=== PATIENT | male | born 1970 | race Caucasian/White ===

== ENCOUNTER 2016-06-19 17:43 | Inpatient (IN) | payer OTHER ==
[2016-06-19] VITALS (13 sets, daily range): BP systolic 98–130; BP diastolic 52–81; PULSE 73–83; RESP 14–16; TEMP 97.6–98.2; O2SAT 91–100
[~2016-06-19] VITALS: Ht 182.9 cm; Wt 118.3 kg
[~2016-06-19 17:43] MED LIST: ABIL5TAB6 PO; BACT800T5 PO; CLON.5 PO; LEXA20TA PO; LYRI150C PO; TOPI50TA4 PO; WELL150T PO
[2016-06-19] MEDS ORDERED: SODIUM CHLOR 0.9% 1000 ML INJ 1,000 ML IV ONE ×2 (17:52→19:15)
[2016-06-19] MEDS ORDERED: SODIUM CHLOR 0.9% 1000 ML INJ 800 ML IV ONE (17:52)
--- NOTE | 2016-06-19 17:59 | PD ---
HPI Chief Complaint: Respiratory Distress Time Seen by Provider: 17:52 Travel History International Travel<30 days: No Contact w/Intl Traveler<30days: No Traveled to known affect area: No History of Present Illness HPI 46-year-old male brought in by ambulance from his hotel where he lives after being found facedown in altered by his roommates. His roommates heard him in his room this morning at around 5:00 AM when they went to school. They last seen him normal yesterday evening. EMS reports possible history of drug use. They found him lying face down and unresponsive with a GCS of 3. They gave him Narcan without improvement in mental status. They believe that he may been having some seizure-like activity, and administered Ativan with apparently cessation of this activity. They attempted to intubate him, however was unsuccessful, so a Combitube was placed. Upon arrival to the emergency department the patient's breathing is controlled by BVM through a Combitube. He is obtunded. Completely unresponsive to painful or verbal stimuli. He is clearly unable to provide any history. The patient was placed in a Caro collar and the Combitube was promptly switched to an endotracheal tube by me. [facility] Past Medical History Respiratory: Yes (BILAT PE) Social History Alcohol Use: No Tobacco Use: No Allergies-Medications (Allergen,Severity, Reaction): Coded Allergies: Dapsone (Verified Allergy, Severe, 01/14/16) Reported Meds & Prescriptions Reported Meds & Active Scripts Active Active Prescriptions or Reported Medications Unobtainable Review of Systems ROS Limitations: Clinical Condition, Intubated, Altered Mental Status Physical Exam Narrative GENERAL: Well-developed, well-nourished, obtunded SKIN: Warm and dry. Left periorbital ecchymosis. No other lacerations, abrasions, or ecchymosis. HEAD: Atraumatic. Normocephalic. EYES: Pupils equal, round, 6 mm, reactive to light. Left periorbital ecchymosis. No scleral icterus. No injection or drainage. ENT: No nasal bleeding or discharge. Mucous membranes pink and moist. NECK: Trachea midline. No JVD. CARDIOVASCULAR: Regular rate and rhythm. RESPIRATORY: No spontaneous respirations. Combitube in place. BVM. GASTROINTESTINAL: Abdomen soft, nondistended. MUSCULOSKELETAL: Right BKA. All extremity compartments are supple. NEUROLOGICAL: Obtunded. No spontaneous movements. No response to verbal or painful stimuli. Data Data Last Documented VS Vital Signs Date Time Temp Pulse Resp B/P Pulse Ox O2 Delivery O2 Flow Rate FiO2 06/19/16 18:51 100 06/19/16 18:48 83 14 128/80 97 Ventilator 06/19/16 17:49 97.6 Orders Electrocardiogram (06/19/16 17:52) Complete Blood Count With Diff (06/19/16:52) Comprehensive Metabolic Panel (06/19/16:52) Prothrombin Time / Inr (Pt) (06/19/16:52) Act Partial Throm Time (Ptt) (06/19/16:52) Lactic Acid Sepsis Protocol (06/19/16:52) Lipase (06/19/16:52) Ckmb (Isoenzyme) Profile (06/19/16:52) Troponin I (06/19/16:52) Urinalysis - C+S If Indicated (06/19/16:52) Blood Culture (06/19/16:52) Chest, Single Ap (06/19/16:52) Blood Glucose (06/19/16:52) Ecg Monitoring (06/19/16:52) Iv Access Insert/Monitor (06/19/16:52) Oximetry (06/19/16:52) Oxygen Administration (06/19/16:52) Sodium Chlor 0.9% 1000 Ml Inj (Ns 1000 M (06/19/16 17:52) Sodium Chlor 0.9% 1000 Ml Inj (Ns 1000 M (06/19/16 17:52) Drug Screen, Random Urine (06/19/16 17:52) Urinary Catheter Insert/Apply (06/19/16:52) Restraints Non-Violent ARLINE.Q3H (06/19/16 17:52) Ct Brain W/O Iv Contrast(Rout) (06/19/16 ) Ct Cerv Spine W/O Contrast (06/19/16 ) Ammonia (06/19/16 17:59) Salicylates (Aspirin) (06/19/16 17:59) Tylenol (Acetaminophen) (06/19/16 17:52) Alcohol (Ethanol) (06/19/16 17:52) Thyroid Stimulating Hormone (06/19/16 17:52) Propofol 1000 Mg/100 Ml Inj (Diprivan 10 (06/19/16 18:18) Vancomycin Inj (Vancomycin Inj) (06/19/16 18:30) Piperacil-Tazo 3.375 Gm Premix (Zosyn 3. (06/19/16 18:30) Urine Culture (06/19/16 18:05) CKMB (06/19/16 18:05) CKMB% (06/19/16 18:05) Arterial Blood Gas (Abg) (06/19/16 ) Arterial Blood Gas (Abg) (06/19/16 18:52) Sodium Chlor 0.9% 1000 Ml Inj (Ns 1000 M (06/19/16 19:15) Etomidate Inj (Amidate Inj) (06/19/16 19:15) Rocuronium Inj (Zemuron Inj) (06/19/16 19:15) Labs Laboratory Tests Test 06/19/16 06/19/16 06/19/16 18:05 18:08 18:52 Urine Color DARK-BROWN Urine Turbidity CLOUDY Urine pH 6.0 Urine Specific [place] 1.025 Urine Protein 100 mg/dL Urine Glucose (UA) NEG mg/dL Urine Ketones NEG mg/dL Urine Occult Blood LARGE Urine Nitrite NEG Urine Bilirubin NEG Urine Urobilinogen 2.0 MG/DL Urine Leukocyte Esterase NEG Urine RBC 22 /hpf Urine WBC 6 /hpf Urine Amorphous Sediment FEW Urine Bacteria FEW /hpf Urine Mucus FEW /lpf Microscopic Urinalysis Comment CATH-CULTURE IND Sodium Level 140 MEQ/L Potassium Level 4.0 MEQ/L Chloride Level 107 MEQ/L Carbon Dioxide Level 25.3 MEQ/L Anion Gap 8 MEQ/L Blood Urea Nitrogen 24 MG/DL Creatinine 1.75 MG/DL Estimat Glomerular Filtration 43 ML/MIN Rate Random Glucose 112 MG/DL Calcium Level 8.3 MG/DL Total Bilirubin 1.9 MG/DL Aspartate Amino Transf 91 U/L (AST/SGOT) Alanine Aminotransferase 63 U/L (ALT/SGPT) Alkaline Phosphatase 105 U/L Ammonia 52 MCMOL/L Total Creatine Kinase 2724 U/L Creatine Kinase MB 17.4 NG/ML Creatine Kinase MB % 0.6 % Troponin I LESS THAN 0.02 NG/ML Total Protein 7.9 GM/DL Albumin 3.9 GM/DL Lipase 237 U/L Thyroid Stimulating Hormone 0.366 uIU/ML 3rd Gen Salicylates Level LESS THAN 1.7 MG/DL Acetaminophen Level LESS THAN 2.0 MCG/ML Ethyl Alcohol Level LESS THAN 3 MG/DL White Blood Count 14.7 TH/MM3 Red Blood Count 4.35 MIL/MM3 Hemoglobin 14.4 GM/DL Hematocrit 44.8 % Mean Corpuscular Volume 103.0 FL Mean Corpuscular Hemoglobin 33.1 PG Mean Corpuscular Hemoglobin 32.2 % Concent Red Cell Distribution Width 17.0 % Platelet Count 268 TH/MM3 Mean Platelet Volume 9.9 FL Neutrophils (%) (Auto) 88.2 % Lymphocytes (%) (Auto) 4.3 % Monocytes (%) (Auto) 7.1 % Eosinophils (%) (Auto) 0.0 % Basophils (%) (Auto) 0.4 % Neutrophils # (Auto) 13.0 TH/MM3 Lymphocytes # (Auto) 0.6 TH/MM3 Monocytes # (Auto) 1.0 TH/MM3 Eosinophils # (Auto) 0.0 TH/MM3 Basophils # (Auto) 0.1 TH/MM3 CBC Comment DIFF FINAL Differential Comment Prothrombin Time 12.0 SEC Prothromb Time International 1.1 RATIO Ratio Activated Partial 26.9 SEC Thromboplast Time Lactic Acid Level 1.8 mmol/L Blood Gas Puncture Site RT BRACHIAL Blood Gas Patient Temperature 98.6 Blood Gas HCO3 21 mmol/L Blood Gas Base Excess -4.9 mmol/L Blood Gas Oxygen Saturation 94 % Arterial Blood pH 7.29 Arterial Blood Partial 45 mmHg Pressure CO2 Arterial Blood Partial 390 mmHG Pressure O2 Arterial Blood Oxygen Content 20.2 Vol % Arterial Blood 0.4 % Carboxyhemoglobin Arterial Blood Methemoglobin 5.2 % Blood Gas Hemoglobin 14.6 G/DL Oxygen Delivery Device VENTILATOR Blood Gas Ventilator Setting Blood Gas Inspired Oxygen 100 % [facility] Medical Decision Making Medical Screen Exam Complete: Yes Emergency Medical Condition: Yes Interpretation(s) EKG: Sinus, rate 82, normal axis, first-degree AV block, possible left atrial enlargement, intraventricular conduction delay, no acute ischemic abnormality. Differential Diagnosis Intracranial abnormality, metabolic abnormality, cervical spine injury, acute respiratory failure, status epilepticus Narrative Course Vital signs show heart rate 82, blood pressure 127/78, pulse ox 97% on 100% FiO2 , axillary temp of 97.6F. CBC shows WBC 14.7, hemoglobin 14.4, hematocrit 44.8, MCV 103, platelets 268, neutrophils 88%. CMP is remarkable for BUN 24, creatinine 1.75, GFR 43, T bili 1.9, AST 91, otherwise unremarkable. Lactic acid is 1.8. Ammonia is 52. Troponin is negative. TSH is 0.366. Total CK is 2724. Tylenol, alcohol, and salicylate levels are negative. ABG on 100% FiO2 shows pH of 7.29, PCO2 45, PO2 390, met hemoglobin 5.2% CT head: Normal exam. CT cervical spine: No acute bony fracture. Mild primary degenerative changes at C5 to 6. Chest x-ray: ET tube and NG tube appeared to be in good position. No pneumothorax. The patient was empirically started on vancomycin and Zosyn for possible infectious source for his altered mental status/encephalopathy. He was given 3 L of normal saline IV for his rhabdomyolysis with his CK of 2700. 7:00 PM: I called the patient's who flew to [place] yesterday. She is a nurse. Her name is Alena Hall, and her phone number is . She tells me that the patient is prescribed Lexapro, Wellbutrin, Topamax, Lyrica , Klonopin, and is also on dapsone for skin rash associated with celiac disease. She tells me that he has a history of anxiety and depression. 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 She states that this has placed a lot of stress on him. She tells me that he also occasionally uses recreational medications, but she is unsure exactly what he uses. She was made aware of the patient's current critical clinical status. Case discussed with hospice admitting clerk Dr. Knight who will admit the patient to her service. She will determine if any treatment as necessary for the patient's mild methemoglobinemia. Critical Care Narrative Aggregate critical care time was 40 minutes. Time to perform other separately billable procedures was not included in the critical care time. My time did not include minutes spent treating any other patients simultaneously or on activities that did not directly contribute to the patient's treatment. The services I provided to this patient were to treat and/or prevent clinically significant deterioration that could result in: , permanent disability, worsening clinical condition I provided critical care services requiring my management, as noted below: Chart data review, documentation time, medication orders and management, vital sign assessments/reviewing monitor data, ordering and reviewing lab tests, ordering and interpreting/reviewing x-rays and diagnostic studies, care of the patient and discussion of the patient with the admitting physicians. Procedures Procedure Narrative Emergent intubation: The patient was put in optimal position for the procedure. Rapid sequence intubation was initiated by me using 20 milligrams of etomidate IV and 50 milligrams of rocuronium IV. Combitube removed and the patient was intubated with a 8.0 Portuguese cuffed endotracheal tube. Tube placement was confirmed by visualization of the tube and balloon passing through the cords, capnometry and subsequent chest x-ray. Breath sounds were equal and well aerated bilaterally postintubation. No breath sounds over stomach. Patient tolerated procedure well. Diagnosis Primary Impression: Altered mental status Qualified Code: R40.2430 - Christi coma scale total score 3-8, unspecified time Additional Impressions: Acute respiratory failure Qualified Code: J96.01 - Acute respiratory failure with hypoxia Rhabdomyolysis Qualified Code: M62.82 - Non-traumatic rhabdomyolysis Renal insufficiency Methemoglobinemia Admitting Information Admitting Physician Requests: Admit Scripts Unable to Obtain Active Prescriptions or Reported Meds Delbert Montes MD Jun 19, 2016 17:59
[2016-06-19] MEDS ORDERED: PROPOFOL 1000 MG/100 ML INJ 100 ML ONE (18:18)
--- NOTE | 2016-06-19 18:21 | RADRPT ---
EXAM DATE/TIME: 06/19/2016 18:02 [facility] COMPARISON: No previous studies available for comparison. INDICATIONS : Evaluate intubation MEDICAL HISTORY : None. SURGICAL HISTORY : None. ENCOUNTER: Initial ACUITY: 1 day PAIN SCORE: Non-responsive. LOCATION: chest FINDINGS: A single view of the chest demonstrates the lungs to be symmetrically aerated without evidence of mas s, infiltrate or effusion. The ET tube appears to be in good position with the tip at the level of t he thoracic aortic arch. There is no evidence of pneumothorax. There is an NG tube in the stomach. Th e cardiomediastinal contours are unremarkable. Osseous structures are intact. CONCLUSION: 1. The ET tube and NG tube appear to be in good position. 2. No pneumothorax. Gray Nair MD on June 19, 2016 at 18:18 Board Certified Radiologist. This report was verified electronically.
[2016-06-19 18:22] LABS: BASOPHIL # 0.1 TH/MM3 (0-0.2); BASOPHIL % 0.4 % (0.0-2.0); HEMATOCRIT 44.8 % (39.0-51.0); HEMO FLAGS DIFF FINAL; LYMPH % 4.3 % (9.0-44.0); LYMPHOCYTE # 0.6 TH/MM3 (1.0-4.8); MEAN CORPUSCULAR HEMOGLOBIN 33.1 PG (27.0-34.0); MEAN CORPUSCULAR HGB CONC 32.2 % (32.0-36.0); MONO % 7.1 % (0.0-8.0); NEUT % 88.2 % (16.0-70.0); PLATELET COUNT 268 TH/MM3 (150-450); RED BLOOD COUNT 4.35 MIL/MM3 (4.50-5.90); WHITE BLOOD COUNT 14.7 TH/MM3 (4.0-11.0)
[2016-06-19] MEDS ORDERED: PIPERACIL-TAZO 3.375 GM PREMIX 50 ML IV ONE (18:30)
[2016-06-19] MEDS ORDERED: VANCOMYCIN INJ 1,000 MG in SODIUM CHLOR 0.9% 250 ML INJ 250 ML IV ONE (18:30)
[2016-06-19 18:32] LABS: APTT (PATIENT) 26.9 SEC (24.3-30.1); INTERNATIONAL NORMALIZED RATIO 1.1 RATIO
[2016-06-19 18:36] LABS: ANION GAP 8 MEQ/L (5-15); AST (GOT) 91 U/L (15-37); BICARBONATE 25.3 MEQ/L (21.0-32.0); BLOOD UREA NITROGEN 24 MG/DL (7-18); CHLORIDE 107 MEQ/L (98-107); GLOMERULAR FILTRATION RATE 43 ML/MIN (>89); SODIUM (NA) 140 MEQ/L (136-145)
[2016-06-19 18:42] LABS: BACTERIA, URINE FEW /hpf; BLOOD, URINE LARGE (NEG); COMMENT (UR) CATH-CULTURE IND; CULTURE IF INDICATED CATH CULTURE IND; GLUCOSE,URINE NEG (NEG); KETONE, URINE NEG (NEG); MUCUS URINE FEW /lpf (OCC); NITRITE,URINE NEG (NEG); URINE COLOR DARK-BROWN (YELLW/STRAW)
--- NOTE | 2016-06-19 18:49 | RADRPT ---
EXAM DATE/TIME: 06/19/2016 18:26 [facility] COMPARISON: No previous studies available for comparison. INDICATIONS : Altered mental status, possible fall today. RADIATION DOSE: 56.35 CTDIvol (mGy) MEDICAL HISTORY : None SURGICAL HISTORY : None. ENCOUNTER: Initial ACUITY: 1 day PAIN SCALE: Non-responsive LOCATION: Bilateral head TECHNIQUE: Multiple contiguous axial images were obtained of the head. Using automated exposure control and adj ustment of the mA and/or kV according to patient size, radiation dose was kept as low as reasonably a chievable to obtain optimal diagnostic quality images. FINDINGS: CEREBRUM: The ventricles are normal for age. No evidence of midline shift, mass lesion, hemorrhage or acute in farction. No extra-axial fluid collections are seen. POSTERIOR FOSSA: The cerebellum and brainstem are intact. The 4th ventricle is midline. The cerebellopontine angle i s unremarkable. EXTRACRANIAL: The visualized portion of the orbits is intact. SKULL: The calvaria is intact. No evidence of skull fracture. CONCLUSION: Normal examination for a patient of this age. Gray Nair MD on June 19, 2016 at 18:47 Board Certified Radiologist. This report was verified electronically.
--- NOTE | 2016-06-19 18:53 | RADRPT ---
EXAM DATE/TIME: 06/19/2016 18:27 [facility] COMPARISON: No previous studies available for comparison. INDICATIONS : Trauma, possible fall today. RADIATION DOSE: 36.67 CTDIvol (mGy) MEDICAL HISTORY : None SURGICAL HISTORY : None. ENCOUNTER: Initial ACUITY: 1 day PAIN SCALE: Non-responsive LOCATION: neck TECHNIQUE: Volumetric scanning of the cervical spine was performed. Multiplanar reconstructions in the sagittal, coronal and oblique axial planes were performed. Using automated exposure control and adjustment o f the mA and/or kV according to patient size, radiation dose was kept as low as reasonably achievable to obtain optimal diagnostic quality images. FINDINGS: VERTEBRAE: Normal vertebral body height. No acute bony fracture. There is some mild degenerative changes at C5-6 . ALIGNMENT: No evidence of subluxation. C2-C3: The bony spinal canal is normal in size. No evidence of disc bulge or herniation. The neural forami na are bilaterally patent. C3-C4: The bony spinal canal is normal in size. No evidence of disc bulge or herniation. The neural forami na are bilaterally patent. C4-C5: The bony spinal canal is normal in size. No evidence of disc bulge or herniation. The neural forami na are bilaterally patent. C5-C6: The bony spinal canal is normal in size. No evidence of disc bulge or herniation. The neural forami na are bilaterally patent. C6-C7: The bony spinal canal is normal in size. No evidence of disc bulge or herniation. The neural forami na are bilaterally patent. C7-T1: The bony spinal canal is normal in size. No evidence of disc bulge or herniation. The neural forami na are bilaterally patent. CONCLUSION: 1. No acute bony fracture. 2. Mild primary degenerative changes at C5-6. Gray Nair MD on June 19, 2016 at 18:50 Board Certified Radiologist. This report was verified electronically.
[2016-06-19 18:58] LABS: ACETAMINOPHEN LESS THAN 2.0 MCG/ML (10.0-30.0); ALKALINE PHOSPHATASE 105 U/L (45-117); ALT (GPT) 63 U/L (12-78); CREATINE KINASE 2724 U/L (39-308); TOTAL BILIRUBIN ADULT 1.9 MG/DL (0.2-1.0)
[2016-06-19 19:04] LABS: BLOOD GAS BASE EXCESS -4.9 mmol/L (-2-2); BLOOD GAS CARBOXYHEMOGLOBIN 0.4 % (0-4); BLOOD GAS HCO3 21 mmol/L (22-26); BLOOD GAS METHEMOGLOBIN 5.2 % (0-2); BLOOD GAS O2 HGB SATURATION 94 % (90-100); BLOOD GAS OXYGEN CONTENT 20.2 Vol % (12.0-20.0); BLOOD GAS PCO2 45 mmHg (38-42); BLOOD GAS PO2 390 mmHG (61-120); BLOOD GAS TOTAL HGB 14.6 G/DL (12.0-16.0); TEMP CORR TO 98.6
[2016-06-19 19:05] LABS: CRITICAL VALUE YES; OXYGEN DEVICE VENTILATOR
[2016-06-19 19:06] LABS: DRAW SITE RT BRACHIAL; FIO2 100 %; NUMBER OF ARTERIAL PUNCTURES 1; STAT YES; ULNAR PULSE PRESENT
[2016-06-19 19:14] LABS: CKMB 17.4 NG/ML (0.5-3.6)
[2016-06-19] MEDS ORDERED: ROCURONIUM INJ 50 MG/5 ML VIAL IV ONE (19:15)
[2016-06-19] MEDS ORDERED: ETOMIDATE 20 MG/10 ML VIAL IV PUSH ONE (19:15)
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
[2016-06-19] MEDS ORDERED: LACTULOSE SYRUP 20 GM/30 ML CUP TUBE ONE (20:15)
[2016-06-19] MEDS ORDERED: CHLORHEXIDINE GLUCONATE 2 % 1 PACK (2 CLOTHS) TOP PRN (20:15)
[2016-06-19] MEDS ORDERED: ONDANSETRON HCL 4 MG/2 ML VIAL IV PRN (20:15)
[2016-06-19] MEDS ORDERED: MISCELLANEOUS NURSING INFORMATION XX SCH (20:15)
[2016-06-19] MEDS ORDERED: RESP: ALBUTEROL 2.5 MG/3 ML NEB (PRN) INH (20:15)
[2016-06-19] MEDS: SODIUM CHLOR 0.9% 1000 ML INJ 1,000 ML IV SCH (20:28)
[2016-06-19] MEDS ORDERED: FOSPHENYTOIN INJ 1,500 MGPE in SODIUM CHLORIDE 0.9% INJ 100 ML IV ONE (21:00)
[2016-06-19] MEDS ORDERED: cefTRIAXone INJ 2,000 MG in SODIUM CHLORIDE 0.9% INJ 100 ML IV SCH (21:00)
[2016-06-19] MEDS ORDERED: CLON1 PO (21:12)
[2016-06-19] MEDS ORDERED: TOPA50TA7 PO (21:12)
[2016-06-19] MEDS ORDERED: PREG25 PO (21:12)
[2016-06-19] MEDS ORDERED: BUPR100CR PO (21:12)
[2016-06-19] MEDS ORDERED: LEXA20TA PO (21:12)
[2016-06-19] MEDS ORDERED: ACZO5GEL2 TOPICAL (21:12)
[2016-06-19] MEDS: RESP: ALBUTEROL 2.5 MG/IPRATROPIUM 0.5 MG NEB (SCH) INH (22:31)
[2016-06-19 22:55] LABS: AMPHETAMINE, URINE POS (NEG); BARBITURATES, URINE NEG (NEG); COCAINE, URINE POS (NEG)
[2016-06-19] MEDS ORDERED: NOREPINEPHRINE-DEXTROSE DRIP 250 ML IV ONE (22:56)
[2016-06-20] VITALS (21 sets, daily range): BP systolic 87–126; BP diastolic 41–66; PULSE 70–104; RESP 8–28; TEMP 98.1–103; O2SAT 85–98
--- NOTE | 2016-06-20 00:21 | PD.PROCEDR ---
Procedure Note Procedure DATE: 06/19/16 CENTRAL LINE PLACEMENT: Right IJ vein. Ultrasound-guided INDICATION: Central venous access CONSENT Patient is not capacitated for medical decision-making. Procedure was done emergently as he was in extremis with blood pressure 60/40 in need of central venous access. DESCRIPTION OF THE PROCEDURE The patient was placed in supine position, Trendelenburg. The skin was cleansed with Chloraprep. Additional barrier precautions included large sterile drape, sterile gloves, sterile gown, face mask, and hat. 1 % lidocaine was used for local anesthesia. Initial attempt x3 at R subclavian site unsuccessful. Under direct ultrasound guidance and on single attempt, the right IJ vein was accessed with an introducer needle. The guide wire was advanced and the tract was dilated. Using Seldinger technique a 7 Syriac 20 cm antimicrobial coated triple-lumen catheter was advanced to a depth of 17 centimeters. The guide wire was removed. All ports had good return of dark venous blood and flushed easily with saline. The central line was secured with 2.0 silk. A sterile dressing with antibiotic disc was applied. ESTIMATED BLOOD LOSS: Minimal COMPLICATIONS: No apparent complications. STAT chest x-ray is pending Ling Knight MD Jun 20, 2016 00:21
[2016-06-20] MEDS ORDERED: ROCURONIUM INJ 50 MG/5 ML VIAL IV ONE (00:45)
[2016-06-20] MEDS ORDERED: fentaNYL DRIP 250 ML IV SCH (00:45)
[2016-06-20] MEDS ORDERED: TERBUTALINE INJ 1 MG/ML AMP SQ PRN ×3 (00:45→08:15)
--- NOTE | 2016-06-20 00:46 | RADRPT ---
EXAM DATE/TIME: 06/20/2016 00:27 [facility] COMPARISON: CHEST SINGLE AP, June 19, 2016, 18:02. INDICATIONS : Post central line placement. MEDICAL HISTORY : None. SURGICAL HISTORY : None. ENCOUNTER: Subsequent ACUITY: 1 day PAIN SCORE: Non-responsive. LOCATION: Bilateral chest FINDINGS: There is increasing bilateral airspace disease in the left mid to lower lung zone, right upper lobe a nd right lower lobe. Right jugular line tip overlies the expected location of the SVC/right atrial ju nction. Endotracheal tube tip at the inferior margin of the clavicles. Enteric tube is present and th e distal tip overlies the mid thoracic esophagus, side port at the thoracic inlet. Osseous structures are intact. CONCLUSION: Central line placement as above. Enteric tube should be advanced. Bilateral airspace disease. Waldemar Becerril MD on June 20, 2016 at 0:44 Board Certified Radiologist. This report was verified electronically.
[2016-06-20] MEDS: NOREPINEPHRINE-DEXTROSE DRIP 250 ML IV SCH ×2 (01:10→02:39)
[2016-06-20 01:33] LABS: CKMB 14.5 NG/ML (0.5-3.6)
[2016-06-20] MEDS: PROPOFOL 1000 MG/100 ML INJ 100 ML IV SCH ×2 (02:39→13:54)
[2016-06-20 02:42] LABS: LACTIC ACID GHOST NOT REPORTABLE
[2016-06-20] MEDS ORDERED: SODIUM CHLORID 0.9% 500 ML INJ 500 ML IV ONE (03:15)
[2016-06-20] MEDS: RESP: ALBUTEROL 2.5 MG/IPRATROPIUM 0.5 MG NEB (SCH) INH ×4 (03:17→19:26)
[2016-06-20] MEDS: VASOPRESSIN INJ 40 UNITS in DEXTROSE 5% IN WATER 100ML INJ 98 ML IV SCH ×4 (03:46→18:36)
[2016-06-20] MEDS: HYDROCORTISONE SOD SUCCINATE 100 MG VIAL IV PUSH SCH ×4 (03:48→21:48)
[2016-06-20] MEDS: SODIUM CHLOR 0.9% 1000 ML INJ 1,000 ML IV SCH (03:51)
[2016-06-20 03:59] LABS: APTT (PATIENT) 21.7 SEC (24.3-30.1); INTERNATIONAL NORMALIZED RATIO 1.1 RATIO; PROTHROMBIN TIME - PATIENT 12.3 SEC (9.8-11.6)
[2016-06-20] MEDS ORDERED: CHLORHEXIDINE GLUCONATE 2 % 1 PACK (2 CLOTHS) TOP SCH (04:00)
[2016-06-20 04:14] LABS: AUTOMATED NEUTROPHIL # 4.7 TH/MM3 (1.8-7.7); BASOPHIL % 0.1 % (0.0-2.0); EOSINOPHIL % 0.6 % (0.0-4.0); HEMATOCRIT 45.3 % (39.0-51.0); LYMPH % 8.3 % (9.0-44.0); LYMPHOCYTE # 0.4 TH/MM3 (1.0-4.8); MEAN CELL VOLUME 105.3 FL (80.0-100.0); MEAN CORPUSCULAR HEMOGLOBIN 34.6 PG (27.0-34.0); MEAN CORPUSCULAR HGB CONC 32.9 % (32.0-36.0); MONO % 2.9 % (0.0-8.0); NEUT % 88.1 % (16.0-70.0); PLATELET COUNT 252 TH/MM3 (150-450); RED CELL DISTRIBUTION WIDTH 17.1 % (11.6-17.2); WHITE BLOOD COUNT 5.3 TH/MM3 (4.0-11.0)
[2016-06-20 04:19] LABS: BICARBONATE 19.8 MEQ/L (21.0-32.0); CALCIUM-PROTEIN CORRECTED 7.5 MG/DL (8.5-10.1); MAGNESIUM 1.6 MG/DL (1.5-2.5); POTASSIUM 3.3 MEQ/L (3.5-5.1); TOTAL BILIRUBIN ADULT 1.3 MG/DL (0.2-1.0)
[2016-06-20 04:21] LABS: HEMO FLAGS AUTO DIFF
[2016-06-20] MEDS: PIPERACIL-TAZO 3.375 GM PREMIX 50 ML IV SCH ×3 (04:38→16:12)
[2016-06-20 04:53] LABS: CKMB 11.6 NG/ML (0.5-3.6)
[2016-06-20] MEDS ORDERED: Vancomycin Consult Pharmacy 1 EA OTHER SCH (05:15)
[2016-06-20 05:39] LABS: PLATELET ESTIMATE SMEAR NORMAL (NORMAL); PLATELET MORPHOLOGY NORMAL (NORMAL); SCAN/DIFF AUTO DIFF CONFIRMED
[2016-06-20] MEDS ORDERED: POTASSIUM CHLOR 20 MEQ PREMIX 100 ML IV ONE (05:45)
[2016-06-20] MEDS ORDERED: NOREPINEPHRINE-DEXTROSE DRIP 250 ML IV SCH (05:45)
[2016-06-20] MEDS ORDERED: CALCIUM CHLORIDE INJ 1 GM in DEXTROSE 5% IN WATER 100ML INJ 100 ML IV ONE ×2 (06:00)
[2016-06-20] MEDS ORDERED: VANCOMYCIN 1,000 MG/NS 250 ML IV ONE ×2 (06:00)
[2016-06-20] MEDS: NOREPINEPHRINE 16 MG/D5W 250 ML IV SCH ×4 (06:00→16:13)
--- NOTE | 2016-06-20 06:06 | PD.PROCEDR ---
Procedure Note Procedure Date: 06/20/16 Procedure: Fiberoptic bronchoscopy with bronchoalveolar lavage, diagnostic/ therapeutic Indication: Acute respiratory failure with aspiration and severe hypoxemia Details of procedure: The patient was sedated with propofol 15 mcg/kg/min. The patient was preoxygenated with 100% FiO2 via endotracheal tube. I entered the endotracheal tube with a flexible bronchoscope. There was evidence of mild bronchial aspiration injury in R bronchus intermedius. The RUL was clear. When saline instilled in RML and RLL subsegments, there was murky cloudy return. The bronchoscope was advanced into RML bronchus and 40 mL was instilled with 25 mL of cloudy yellowish return. The ROSSANA, Lingula and LLL subsegments appeared grossly clear. Instilling 10 ML saline wash in LLL resulted in cloudy yellowish return. No large mucous plugs. Patient tolerated the procedure well without apparent complication. Ling Knight MD Jun 20, 2016 06:06 well without any apparent complications. A stat chest x-ray was ordered. Ling Knight MD Jun 20, 2016 06:06
[2016-06-20 06:13] LABS: BLOOD GAS VENOUS BASE EXCESS -13.4 mmol/L (-2-2); BLOOD GAS VENOUS HCO3 15 mmol/L (22-26); BLOOD GAS VENOUS O2 CONTENT 14.1 Vol % (9.0-17.0); BLOOD GAS VENOUS O2 HGB SAT 71 % (70-76); BLOOD GAS VENOUS PCO2 55 mmHg (44-48); BLOOD GAS VENOUS PO2 51 mmHg (35-40); BLOOD GAS VENOUS pH 7.06 (7.360-7.400); TEMP CORR TO 98.6
[2016-06-20 06:14] LABS: CRITICAL VALUE YES; DRAW SITE LINE; FIO2 100 %; OXYGEN DEVICE VENTILATOR; STAT YES; VENT SETTINGS AC/22/550/PEEP 16
[2016-06-20] MEDS ORDERED: MIDAZOLAM HCL 2 MG/2 ML VIAL IV PUSH ONE (06:15)
[2016-06-20] MEDS: MIDAZOLAM 100 MG/ML INJ 100 ML IV SCH ×2 (06:28→21:49)
[2016-06-20 06:56] LABS: BLOOD GAS BASE EXCESS -13.9 mmol/L (-2-2); BLOOD GAS CARBOXYHEMOGLOBIN 0.3 % (0-4); BLOOD GAS HCO3 14 mmol/L (22-26); BLOOD GAS METHEMOGLOBIN 3.8 % (0-2); BLOOD GAS O2 HGB SATURATION 94 % (90-100); BLOOD GAS OXYGEN CONTENT 19.8 Vol % (12.0-20.0); BLOOD GAS PCO2 43 mmHg (38-42); BLOOD GAS PO2 150 mmHg (61-120); BLOOD GAS TOTAL HGB 14.9 G/DL (12.0-16.0); TEMP CORR TO 98.6
[2016-06-20 06:57] LABS: CRITICAL VALUE YES; DRAW SITE LT BRACHIAL; FIO2 100 %; NUMBER OF ARTERIAL PUNCTURES 1; OXYGEN DEVICE VENTILATOR; STAT YES; VENT SETTINGS AC/22/550/PEEP 16
[2016-06-20] MEDS ORDERED: CISATRACURIUM INJ 100 MG in SODIUM CHLOR 0.9% 250 ML INJ 240 ML IV SCH (07:00)
[2016-06-20] MEDS ORDERED: SODIUM BICARBONATE 8.4% INJ 50 MEQ/50 ML SYR ONE ×2 (07:00→08:04)
--- NOTE | 2016-06-20 09:25 | HHI.CCPN ---
Subjective Remarks/Hospital Course 46 yo WM with PMH of celiac disease/dermatitis herpetiformis, depression, anxiety, PTSD who presents to [facility] [place] [facility] with AMS. He was last seen normal by roommates at 5 am today. They returned home to the residence to find him unresponsive in pool of vomit this afternoon. He was given Narcan without response. Combitube was placed by [facility]. He was intubated upon arrival to the ED by Dr. Montes. He was subsequently unresponsive with dilated and fixed pupils. CT brain and C-spine were negative. Chest x-ray is relatively unremarkable. WBC is 14.7. He is in acute kidney injury with creatinine of 1.75. Ammonia level is 52. CK is 2724. Lactic acid is 1.8. TSH is normal. Alcohol level is less than 3. Acetaminophen and salicylate level are low. Urine drug screen pending at time of admission. SUBJ 06/20/16: Significant deterioration in hemodynamic status overnight requiring maximum dose of Levophed and vasopressin. Previously patient was moving all 4 extremities. On my exam this a.m. patient has dilated pupils which are fixed, no corneal reflex. According to the bedside RN at least since midnight patient had been with dilated and fixed pupils. A stat MRI is pending at this time as well as an EEG. Patient does breathe over the vent. Remains profoundly acidemic. Remains on 100% FiO2 and 16 of PEEP for severe ARDS. Also Patient was loaded with Cerebyx after admission for possible seizures. Also overnight had bronchoscopy due to acutely worsening hypoxemia Objective Vital Signs Date Time Temp Pulse Resp B/P Pulse Ox O2 Delivery O2 Flow Rate FiO2 06/20/16 08:08 94 100 06/20/16 06:00 93 06/20/16 04:00 98.1 8 87/41 06/19/16 20:11 Ventilator Result Diagram: 06/20/16 0325 06/20/16 0325 Other Results Laboratory Tests Test 06/19/16 06/20/16 06/20/16 18:52 05:50 06:40 Blood Gas Puncture Site RT BRACHIAL LINE LT BRACHIAL Blood Gas Patient Temperature 98.6 98.6 98.6 Blood Gas HCO3 21 mmol/L 14 mmol/L (22-26) (22-26) Blood Gas Base Excess -4.9 mmol/L -13.9 mmol/L (-2-2) (-2-2) Blood Gas Oxygen Saturation 94 % (90-100) 94 % (90-100) Arterial Blood pH 7.29 7.13 (7.380-7.420) (7.380-7.420) Arterial Blood Partial 45 mmHg (38-42) 43 mmHg (38-42) Pressure CO2 Arterial Blood Partial 390 mmHG 150 mmHg Pressure O2 (61-120) (61-120) Arterial Blood Oxygen Content 20.2 Vol % 19.8 Vol % (12.0-20.0) (12.0-20.0) Arterial Blood 0.4 % (0-4) 0.3 % (0-4) Carboxyhemoglobin Arterial Blood Methemoglobin 5.2 % (0-2) 3.8 % (0-2) Blood Gas Hemoglobin 14.6 G/DL 14.9 G/DL (12.0-16.0) (12.0-16.0) Oxygen Delivery Device VENTILATOR VENTILATOR VENTILATOR Blood Gas Ventilator Setting AC/22/550/PEEP AC/22/550/PEEP 16 16 Blood Gas Inspired Oxygen 100 % 100 % 100 % Venous Blood pH 7.06 (7.360-7.400) Venous Blood Partial Pressure 55 mmHg (44-48) CO2 Venous Blood Partial Pressure 51 mmHg (35-40) O2 Venous Blood HCO3 15 mmol/L (22-26) Venous Blood Oxygen Saturation 71 % (70-76) Venous Blood Oxygen Content 14.1 Vol % (9.0-17.0) Venous Blood Base Excess -13.4 mmol/L (-2-2) Objective Remarks GENERAL: Well-nourished, well-developed patient who is orotracheally intubated, very critical SKIN: Warm and dry. There is raised rash over left hand, cream has been applied , no e/o superinfection. rash in bilateral groin intertriginous rash HEAD: Atraumatic. Normocephalic. EYES: Pupils are round 7 mm nonreactive. No corneal reflex. Bilateral conjunctival injection. ENT: No nasal bleeding or discharge. Mucous membranes pink and moist. Orotracheally intubated. Perfused blood-tinged ET tube secretions NECK: Trachea midline. No JVD. CARDIOVASCULAR: Regular rate and rhythm. No murmurs rubs or gallops. Currently on 30 mics of Levophed and 0.04 units of vasopressin RESPIRATORY: Coarse bilateral breath sounds without wheeze. PRVC mode with PEEP 16 and FiO2 100% GASTROINTESTINAL: Abdomen soft, non-tender, nondistended. Bowel sounds hypoactive. : Hayward in place with very dark afia and blood tinged urine output MUSCULOSKELETAL: Status post right BKA. NEUROLOGICAL: Pupils are round 7 mm nonreactive. No corneal reflex. No nystagmus. No withdrawal to deep pain. Patient still breathing above the vent set rate A/P Assessment and Plan NEURO: Acute severe encephalopathy Poly substance abuse Cocaine use Amphetamine abuse Hyperammonemia CT brain and C-spine negative. Stat MRI due change in pupil (Now dilated and fixed) EtOH/APAP/ASA negative. Urine drug screen positive for cocaine/amphetamine/ benzo EEG report pending. Consult neurology Loaded with Fosphenytoin 1500 mg/PE IV x1 due to concern for seizure/ nonconvulsive status. Pupils were reportedly unreactive when he came in, became reactive and now dilated and fixed. Concerned this may be indicative of seizure activity and he would be at risk for that with stimulant ingestion and wellbutrin.. Dilantin 100 bid. F/u dilantin level. Propofol, versed for sedation. RESP: Acute hypoxemic respiratory failure ARDS Aspiration pneumonitis Severe metabolic acidosis Intubated in the ED 06/19/16 following Combitube placement by [facility] DuoNeb every 6 hours. Albuterol every 2 hours as needed Ventilator bundle. PRVC mode of ventilation with PEEP 16, FiO2 60% (Patient initially oxygenating well upon admission but developed severe hypoxemia during course of overnight. Adjusted vent and placed on PEEP 16. Given rocuronium 50 mg IV x1. Diagnostic bronchoscopy performed) Consider prone therapy if patient becomes more stable hemodynamically CV: Septic shock Lactic acidemia Patient initially normotensive upon admission for several hours but abruptly became hypotensive with BP 60/40. Started on levophed, and vasopressin added CVL placed by Dr. Knight. CVP is 3-4 and bedside u/s appears hyperdynamic. Has received 4.5 L NS bolus. On levophed/vasopressin/hydrocortisone 100 mg IV q8. Dopamine started for persistent hypotension Bicarbonate 2 amps followed by bicarbonate infusion for severe metabolic acidosis F/u Echo. Troponin negative GI: Celiac disease Dermatitis herpetiformis (skin manifestation of celiac disease) NPO. OGT to LIWS. Hold dapsone due to methemoglobinemia FEN/RENAL: Acute kidney injury Acute rhabdomyolysis Hypokalemia Hypocalcemia Hypophosphatemia Hayward in place. Monitor intake and output. Monitor electrolytes. Replace electrolytes as indicated per ICU electrolyte replacement protocol. Continue normal saline at 125 mL per hour-changed to bicarbonate infusion at 150 mL per hour Follow-up CPK. Oligoanuric, neurology consulted ID: Leukocytosis Aspiration pneumonia Septic Shock ?UTI Received vancomycin and Zosyn in the emergency department-continue both, consult ID UA demonstrated 6 white cells and few bacteria. Follow-up urine culture Blood culture pending. F/U bronchial washing RML Vancomycin/Zosyn. HEME: Methemoglobinemia Hypofibrinogenemia Patient has mild methemoglobinemia without cyanosis. This level of ~5 would not cause this degree of mental status change. Treatment with methylene blue could result in serotonin syndrome in patient who has evidence of overdose and is prescribed lexapro/wellbutrin therefore will not treat. Hold dapsone which has caused symptomatic methemoglobinemia in the past. ENDO: Euglycemic. TSH normal. PROPH: SCD left lower extremity for DVT prophylaxis. Protonix 40 mg IV daily for stress ulcer prophylaxis. ACCESS: R IJ CVL placed 06/20. Multiple attempts at radial art line unsuccessful and avoided femoral due to concern for intertriginous rash. Dr. Knight discussed with Dr. Montes. Spoke with patient's , Alena. Critical care time 85 minutes exclusive separately billable procedures. Addendum: Over the day patient continued to spike fever. MAXIMUM TEMPERATURE 103. I will discontinue Zosyn and start Fortaz at meningitic doses, add Flagyl and also add acyclovir. Lumbar puncture will be attempted, if not able to perform due to body habitus will consult IR for lumbar puncture. Meghan Ugarte MD Jun 20, 2016 09:25
[2016-06-20] MEDS ORDERED: ATROPINE SULFATE 1 MG/10 ML SYRINGE ONE (09:47)
[2016-06-20] MEDS ORDERED: EPINEPHrine HCL (1:10,000) 1 MG/10 ML SYRINGE ONE (09:47)
[2016-06-20] MEDS ORDERED: SODIUM BICARBONATE 8.4% INJ 50 ML ONE (09:48)
[2016-06-20] MEDS: LACTULOSE SYRUP 20 GM/30 ML CUP TUBE SCH ×3 (09:58→18:05)
[2016-06-20] MEDS: PHENYTOIN INJ 100 MG/2 ML VIAL IV SCH ×2 (09:59→21:49)
[2016-06-20] MEDS: PANTOPRAZOLE SODIUM 40 MG VIAL IV SCH (09:59)
[2016-06-20] MEDS ORDERED: SODIUM BICARBONATE 8.4% INJ 50 MEQ/50 ML SYR IV PUSH ONE (10:00)
[2016-06-20] MEDS ORDERED: SODIUM CHLOR 0.9% 1000 ML INJ 1,000 ML IV ONE (10:00)
--- NOTE | 2016-06-20 10:00 | EKG ---
Date Performed: 06/20/2016 Time Performed: 07:07:45 PTAGE: 46 years EKG: Sinus rhythm BORDERLINE RIGHT AXIS DEVIATION INTRAVENTRICULAR CONDUCTION DELAY TYPE 3 BRUGADA PATTERN (NON-DIAGNO STIC) ABNORMAL ECG PREVIOUS TRACING : 06/19/2016 17.54 DOCTOR: Jemal Freire Interpretating Date/Time 06/20/2016 09:58:24
--- NOTE | 2016-06-20 10:12 | MG ---
cc: ANGELA BUSTILLO MD Lab No: [id number] Date: 06/20/2016 : 1970 Sex: M INDICATION A 46-year-old with history of unresponsive state with head twitching. DESCRIPTION Polyspike bursts with suppression episodes lasting 1-3 seconds of delta, 27 microvolts. Appeared to be eyebrow and head twitch and polyspike activity. Phase reversals in bifrontal region, frontal sharps. Reduction of bursts towards the end of the recording with delta suppression lasting 5 seconds. INTERPRETATION Burst suppression type pattern noted on EEG. Bursts associated with twitching. Clinical correlation. Angela Bustillo MD MG/BT /9:49 AM /10:07 AM
--- NOTE | 2016-06-20 10:14 | EKG ---
Date Performed: 06/19/2016 Time Performed: 17:54:38 PTAGE: 46 years EKG: Sinus rhythm WITH FIRST DEGREE AV BLOCK POSSIBLE LEFT ATRIAL ENLARGEMENT INTRAVENTRICULAR CONDUCTION DELAY ABNORM AL ECG NO PREVIOUS TRACING DOCTOR: Jemal Freire Interpretating Date/Time 06/20/2016 10:12:35
[2016-06-20 10:38] LABS: LACTIC ACID GHOST NOT REPORTABLE
--- NOTE | 2016-06-20 11:17 | RADRPT ---
EXAM DATE/TIME: 06/20/2016 10:46 [facility] COMPARISON: CT BRAIN W/O CONTRAST, June 19, 2016, 18:26. INDICATIONS : Altered mental status. MEDICAL HISTORY : Celiac disease. Methemoglobinemia. Dermatitis herpetiformis. SURGICAL HISTORY : Gastric bypass. Cholecystectomy. Right BKA. ENCOUNTER: Subsequent ACUITY: 2 day PAIN SCORE: Nonresponsive. LOCATION: head. TECHNIQUE: Multiplanar, multisequence MRI of the brain was performed without contrast. FINDINGS: CEREBRUM: The ventricles are normal for age. No evidence of midline shift, mass lesion, hemorrhage or acute in farction. No extraaxial fluid collections are seen. The pituitary gland and suprasellar cistern are normal in configuration. WHITE MATTER: No significant signal abnormalities are seen in the white matter. POSTERIOR FOSSA: The cerebellum and brainstem are intact. The 4th ventricle is midline. The cerebellopontine angle is unremarkable. The cerebellar tonsils are normal in position. DIFFUSION IMAGING: No focal areas of restricted diffusion are seen. No evidence of acute infarction. EXTRACRANIAL: The visualized portions of the orbits and paranasal sinuses are unremarkable. CONCLUSION: Negative exam. Cristo Ashton MD on June 20, 2016 at 11:15 Board Certified Radiologist. This report was verified electronically.
--- NOTE | 2016-06-20 12:14 | PD.PROCEDR ---
Procedure Note Procedure REASON FOR PROCEDURE Septic shock on three pressors. (NOT THAT CYANOSIS OF DIGITS PRESENT PRIOR TO PLACEMENT OF BRACHIAL ARTERIAL LINE) PROCEDURE PERFORMED R brachial arterial line using US guidance CONSENT Emergency procedure ANESTHESIA Local injection of 1% Lidocaine DESCRIPTION OF THE PROCEDURE The patient was placed adequately. The area was exposed and cleansed with ChloraPrep, times two. Sterile drape was used to cover the patient, with the site exposed, under sterile conditions including cap, face mask, sterile gown, and sterile gloves. On single attempt, the introducer needle was inserted with negative pressure in syringe and arterial flash was obtained from brachial artery. The guide wire was then advanced without any restriction and the needle was removed. Using Seldinger technique the brachial arterial catheter was advanced over the guide wire and guide wire was removed. Good arterial wave form obtained RADIOLOGICAL DATA Ultrasound guidance was used to locate R brachial artery COMPLICATIONS: No apparent complications ESTIMATED BLOOD LOSS: Less than 3 cc. Meghan Ugarte MD Jun 20, 2016 12:14
[2016-06-20 12:19] LABS: BLOOD GAS BASE EXCESS -12.6 mmol/L (-2-2); BLOOD GAS CARBOXYHEMOGLOBIN 0.2 % (0-4); BLOOD GAS HCO3 14 mmol/L (22-26); BLOOD GAS METHEMOGLOBIN 4.4 % (0-2); BLOOD GAS O2 HGB SATURATION 94 % (90-100); BLOOD GAS OXYGEN CONTENT 19.5 Vol % (12.0-20.0); BLOOD GAS PCO2 38 mmHg (38-42); BLOOD GAS PO2 200 mmHg (61-120); BLOOD GAS TOTAL HGB 14.5 G/DL (12.0-16.0); TEMP CORR TO 98.6
[2016-06-20 12:20] LABS: CRITICAL VALUE YES; DRAW SITE ART LINE; FIO2 100 %; NUMBER OF ARTERIAL PUNCTURES 0; OXYGEN DEVICE VENTILATOR; STAT YES; ULNAR PULSE PRESENT; VENT SETTINGS PRVC/AC
[2016-06-20] MEDS: CHLORHEXIDINE 0.12% (ORAL KIT) 15 ML CUP MT SCH ×2 (12:31→21:50)
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
[2016-06-20] MEDS: SODIUM BICARBONATE 8.4% INJ 150 MEQ in DEXTROSE 5% IN WATE 1000ML INJ 1,000 ML IV SCH ×4 (13:54→18:35)
[2016-06-20] MEDS: DOPamine INJ PREMIX 500 ML IV SCH (16:12)
--- NOTE | 2016-06-20 16:53 | EC ---
Study Study Date:06/20/2016 STUDY CONCLUSIONS SUMMARY - Procedure narrative: Transthoracic echocardiography. Image quality was very poor. Scanning was performed from the parasternal, apical, and subcostal acoustic windows. - Left ventricle: The cavity size was normal. Wall thickness was normal. Systolic function was normal. The estimated ejection fraction was in the range of 55% to 60%. Regional wall motion abnormalities cannot be excluded. - Aortic valve: Poorly visualized. - Mitral valve: Poorly visualized. - Right ventricle: The cavity size was normal. Wall thickness was normal. There is an ill defined approximately 1 cm, possibly mobile, irregular echodensity near the apex seen on one subcostal view. On apical views there appears to be just a prominent moderator band in this region. However, if clinically indicated a transesophageal echocardiogram can further delineate the etiology of this echodensity. - Tricuspid valve: There is a questionable irregular echodensity at the base of the more lateral leaflet; this area is verypoorly visualized. If LV function is below 40, please consider prescribing an ACEI or ARB or document rationale for non-use. PROCEDURE DATA STUDY STATUS: Elective. Procedure: Transthoracic echocardiography. Image quality was very poor. Scanning was performed from the parasternal, apical, and subcostal acoustic windows. Study completion: The patient tolerated the procedure well. Transthoracic echocardiography. M-mode, complete 2D, complete spectral Doppler, and color Doppler. Height: Height: 72in. Weight: Weight: 181.6lb. Body mass index: BMI: 24.7kg/m^2. Body surface area: BSA: 2.05m^2. Patient status: Inpatient. CARDIAC ANATOMY LEFT VENTRICLE: The cavity size was normal. Wall thickness was normal. Systolic function was normal. The estimated ejection fraction was in the range of 55% to 60%. Regional wall motion abnormalities cannot be excluded. AORTIC VALVE: Poorly visualized. Doppler: Transvalvular velocity was within the normal range. There was no stenosis. No regurgitation. Valve area: 3.03cm^2 (Vmax). Indexed valve area: 1.48cm^2/m^2 (Vmax). AORTA: Aortic root: The aortic root was normal in size. MITRAL VALVE: Poorly visualized. Doppler: Transvalvular velocity was within the normal range. There was no evidence for stenosis. No regurgitation. Valve area by pressure half-time: 4.07cm^2. Indexed valve area by pressure half-time: 1.99cm^2/m^2. Peak gradient: 2mm Hg (D). LEFT ATRIUM: The atrium was normal in size. RIGHT VENTRICLE: The cavity size was normal. Wall thickness was normal. There is an ill defined approximately 1 cm, possibly mobile, irregular echodensity near the apex seen on one subcostal view. On apical views there appears to be just a prominent moderator band in this region. However, if clinically indicated a transesophageal echocardiogram can further delineate the etiology of this echodensity. PULMONIC VALVE: Doppler: Transvalvular velocity was within the normal range. There was no evidence for stenosis. No regurgitation. TRICUSPID VALVE: There is a questionable irregular echodensity at the base of the more lateral leaflet; this area is verypoorly visualized. Doppler: Transvalvular velocity was within the normal range. No regurgitation. Peak gradient: 23mm Hg (D). PULMONARY ARTERY: The main pulmonary artery was normal-sized. Systolic pressure was within the normal range. RIGHT ATRIUM: The atrium was normal in size. PERICARDIUM: There was no pericardial effusion. SYSTEMIC VEINS: Inferior vena cava: The vessel was normal in size. Patient weight: 181.6lb _Ejection fraction:_ 65-75% _Fractional shortening:_ 32% up to 5Kg 5-11.5Kg 11.6-22.9Kg 23-45Kg 45-57Kg Aortic Root 7-13 <17 13-22 17-27 17-27 LA diam 6-13 <23 24-38 33-47 37-40 RVID 10-17 7-15 7-15 7-18 8-17 LVIDd 12-22 <32 24-38 33-47 37-40 LVPW 2-4 3-6 5-7 6-8 7-8 IVS 2-4 3-6 5-7 6-8 7-8 BASIC MEASUREMENTS ADULT NORMAL Aortic valve Leaflet separation 20 mm 15-26 BASIC MEASUREMENTS ADULT NORMAL Aortic valve Leaflet separation 20 mm 15-26 Aorta Root diameter, ED 32 mm 20-37 DOPPLER MEASUREMENTS ADULT NORMAL Main pulmonary artery Pressure, S 17 mm Hg =30 Aortic valve Peak velocity, S 99.1 cm/s Valve area, Vmax 3.03 cm^2 Valve area index, Vmax 1.48 cm^2/m^2 Mitral valve Peak E-wave velocity 74.5 cm/s Peak A-wave velocity 40.5 cm/s Pressure half-time 54 ms Peak gradient, D 2 mm Hg Peak E/A ratio 1.8 Valve area, pressure half-time 4.07 cm^2 Valve area index, pressure half-time 1.99 cm^2/m^2 Tricuspid valve Peak gradient, D 23 mm Hg Maximal inflow velocity 238 cm/s Regurgitant peak velocity 159 cm/s Peak RV-RA gradient, S 10 mm Hg Systemic veins Estimated CVP 10 mm Hg Right ventricle RV pressure, S 20 mm Hg <30 Pulmonic valve Peak velocity, S 92.3 cm/s LEGEND: Mean values are shown as u=mean value. Asterisk (*) shoemaker values outside specified normal range. Prepared and signed by Edgard San [id number]
--- NOTE | 2016-06-20 17:37 | PD.PROCEDR ---
Procedure Note Procedure After the risks and benefits were discussed with and the following procedure was performed: LUMBAR PUNCTURE: The patient was placed in the right lateral decubitus position. The lumbar area of the back was prepped with chlorhexidine and sterilely draped. The L3 - L4 interspace was infiltrated with 1% lidocaine plain. LP needle was placed in the interspace. Opening pressure deferred. CSF obtained in serially marked tubes. Patient tolerated procedure well. See lab orders for studies Meghan Ugarte MD Jun 20, 2016 17:36
[2016-06-20] MEDS: ACETAMINOPHEN 650 MG/20.3 ML UDC NG PRN (18:05)
[2016-06-20] MEDS: cefTAZidime INJ 2,000 MG in SODIUM CHLORIDE 0.9% INJ 100 ML IV SCH (18:12)
[2016-06-20] MEDS: metroNIDAZOLE 500 MG INJ 100 ML IV SCH (18:13)
[2016-06-20] MEDS: ACYCLOVIR INJ 800 MG in SODIUM CHLORIDE 0.9% INJ 150 ML IV SCH (18:36)
[2016-06-20 19:11] LABS: LACTIC ACID,CSF 4.4 MMOL/L (0.0-3.0)
--- NOTE | 2016-06-20 19:20 | MB ---
cc: ITALIA MURPHY MD DATE OF CONSULTATION 06/20/16 REASON FOR CONSULTATION Encephalopathy. HISTORY OF PRESENT ILLNESS This is a 46 old man with a history of celiac disease, dermatitis, depression, anxiety, PTSD. She came into [place] via [facility] with change in mental status. Apparently, last seen normal by roommates about 5 o'clock in the morning and found later in the afternoon around 5:00 p.m at his home was with some vomitus secretions, on the floor unresponsive. He was given some Narcan without response, intubated and transferred by [facility], found to have dilated pupils. He does have a left ecchymosis over the left orbit area. CT brain, C-spine at that time were negative. WBC count then was 14.7, creatinine 1.75, ammonia 52 CK 2724, lactic acid 1.8. He did also have on his UDS benzodiazepines, amphetamines and cocaine. However, he was on benzos to start with. Ethanol level, salicylate and acetaminophen levels were unremarkable. PHYSICAL EXAMINATION VITAL SIGNS: Temperature is 98.1. Pulse 93, respiratory rate __, satting at 95% FIO2 70%. GENERAL: He is intubated on a ventilator, sedated due to twitching. Right pupil is very sluggish if at all reactive. Left pupil difficult to tell with the swelling, does not follow any commands. Does not withdraw, but again he is sedated on Diprivan, sedated exam. LABORATORY DATA Labs are reviewed. Today his lactic acid level is 3.5. IMAGING STUDIES He did have an MRI of the brain that was negative for any acute findings. Last EEG performed today shows burst suppression type pattern with some associated twitching with some bifrontal sharps and phase reversals. IMPRESSION A 46 year old man with what looks like an anoxic encephalopathy, abnormal EEG with burst suppression and some sharps. Certainly can be due to anoxia as well. Recommend continuing his Dilantin injectable. Check a level. Keep the level at least 15 adjusting for his renal parameters as well as his albumin. We will get a repeat EEG in the morning and likely repeat a CT if warranted in 48 hours. However, given findings at this point prognosis does look to be extremely poor. We will continue current care. I did speak to his . MD QUAN Azar /3:41 PM /7:09 PM
[2016-06-20 19:38] LABS: GROSS BLOOD TUBE #1 0 (0); GROSS BLOOD TUBE #2 0 (0); GROSS BLOOD TUBE #3 0 (0); SUPERNATE COLOR TUBE #1 CLEAR (CLEAR); SUPERNATE COLOR TUBE #2 CLEAR (CLEAR); SUPERNATE COLOR TUBE #3 CLEAR (CLEAR); VOLUME TUBE # 2 1.8 ML; VOLUME TUBE # 3 1.2 ML
[2016-06-20 19:39] LABS: CSF LYMPHOCYTES 50 %; CSF MONOCYTES 45 %; CSF NEUTROPHILS 0 %; GROSS BLOOD TUBE #4 0 (0); SUPERNATE COLOR TUBE #4 CLEAR (CLEAR); VOLUME TUBE # 4 2.3 ML; WBC TUBE #4 2 /MM3 (0-10)
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
[2016-06-20] MEDS: ARTIFICIAL TEARS OPTH OINT 3.5 APPLIC/3.5 GM TUBO EACH EYE SCH (22:00)
[2016-06-21] VITALS (18 sets, daily range): BP systolic 94–134; BP diastolic 35–57; PULSE 61–94; RESP 22; TEMP 97.5–105.5; O2SAT 0–95
[2016-06-21] MEDS: ACETAMINOPHEN 650 MG/20.3 ML UDC NG PRN (00:29)
[2016-06-21] MEDS: PROPOFOL 1000 MG/100 ML INJ 100 ML IV SCH (00:47)
[2016-06-21] MEDS: metroNIDAZOLE 500 MG INJ 100 ML IV SCH ×3 (00:48→16:25)
[2016-06-21] MEDS: DOPamine INJ PREMIX 500 ML IV SCH ×2 (00:48→09:37)
[2016-06-21] MEDS: SODIUM BICARBONATE 8.4% INJ 150 MEQ in DEXTROSE 5% IN WATE 1000ML INJ 1,000 ML IV SCH ×4 (02:45→11:38)
[2016-06-21] MEDS: NOREPINEPHRINE 16 MG/D5W 250 ML IV SCH ×2 (02:51)
--- NOTE | 2016-06-21 02:53 | RADRPT ---
EXAM DATE/TIME: 06/21/2016 02:16 [facility] COMPARISON: CHEST SINGLE AP, June 20, 2016, 0:27. INDICATIONS : Shortness of breath. MEDICAL HISTORY : Celiac disease. Methemoglobinemia. Dermatitis herpetiformis SURGICAL HISTORY : Gastric bypass. Cholecystectomy. Right BKA ENCOUNTER: Subsequent ACUITY: 3 days PAIN SCORE: Non-responsive. LOCATION: Bilateral chest FINDINGS: Endotracheal tube tip at the inferior margin of the clavicles. Enteric tube courses beneath the diaph ragm. Patchy left lower lobe airspace disease is noted with improving infiltrates in the right mid to lower lung zones. Cardiomegaly. Right jugular line tip overlies the SVC. CONCLUSION: Improved aeration on the right persistent left lower lobe consolidation. Waldemar Becerril MD on June 21, 2016 at 2:51 Board Certified Radiologist. This report was verified electronically.
[2016-06-21] MEDS: RESP: ALBUTEROL 2.5 MG/IPRATROPIUM 0.5 MG NEB (SCH) INH ×4 (02:59→21:44)
[2016-06-21 04:10] LABS: AUTOMATED NEUTROPHIL # 15.3 TH/MM3 (1.8-7.7); BASOPHIL % 0.1 % (0.0-2.0); HEMATOCRIT 37.8 % (39.0-51.0); LYMPH % 2.7 % (9.0-44.0); LYMPHOCYTE # 0.5 TH/MM3 (1.0-4.8); MEAN CELL VOLUME 101.5 FL (80.0-100.0); MEAN CORPUSCULAR HEMOGLOBIN 33.6 PG (27.0-34.0); MEAN CORPUSCULAR HGB CONC 33.1 % (32.0-36.0); MONO % 7.5 % (0.0-8.0); NEUT % 89.7 % (16.0-70.0); PLATELET COUNT 96 TH/MM3 (150-450); RED BLOOD COUNT 3.72 MIL/MM3 (4.50-5.90); RED CELL DISTRIBUTION WIDTH 16.8 % (11.6-17.2)
[2016-06-21 04:43] LABS: BICARBONATE 16.9 MEQ/L (21.0-32.0); CALCIUM-PROTEIN CORRECTED 8.1 MG/DL (8.5-10.1); POTASSIUM 3.6 MEQ/L (3.5-5.1); TOTAL BILIRUBIN ADULT 1.3 MG/DL (0.2-1.0)
[2016-06-21] MEDS: ACYCLOVIR INJ 800 MG in SODIUM CHLORIDE 0.9% INJ 150 ML IV SCH ×2 (05:38→16:25)
[2016-06-21] MEDS: HYDROCORTISONE SOD SUCCINATE 100 MG VIAL IV PUSH SCH ×3 (05:38→21:26)
[2016-06-21] MEDS: cefTAZidime INJ 2,000 MG in SODIUM CHLORIDE 0.9% INJ 100 ML IV SCH (05:39)
[2016-06-21 05:54] LABS: HEMO FLAGS AUTO DIFF
[2016-06-21 05:56] LABS: BANDS 10 % (0-6); METAMYELOCYTES 12 % (0-1); NEUTROPHIL # MANUAL DIFF 15.1 TH/MM3 (1.8-7.7); POLYS (SEG NEUTROPHILS) 67 % (16-70); SCAN/DIFF FINAL DIFF MANUAL; WBC DIFF SAMPLE 100
[2016-06-21 05:57] LABS: DOHLE BODIES PRESENT (NONE SEEN); PLATELET ESTIMATE SMEAR LOW (NORMAL); PLATELET MORPHOLOGY NORMAL (NORMAL); TOXIC VACUOLATION PRESENT (NONE SEEN)
[2016-06-21 06:57] LABS: BLOOD GAS BASE EXCESS -8.6 mmol/L (-2-2); BLOOD GAS CARBOXYHEMOGLOBIN 0.6 % (0-4); BLOOD GAS HCO3 16 mmol/L (22-26); BLOOD GAS O2 HGB SATURATION 89 % (90-100); BLOOD GAS OXYGEN CONTENT 15.4 Vol % (12.0-20.0); BLOOD GAS PCO2 32 mmHg (38-42); BLOOD GAS PO2 68 mmHg (61-120); BLOOD GAS TOTAL HGB 12.2 G/DL (12.0-16.0); CRITICAL VALUE YES; TEMP CORR TO 98.6
[2016-06-21 06:58] LABS: DRAW SITE ART LINE; FIO2 50 %; OXYGEN DEVICE VENTILATOR; STAT YES; VENT SETTINGS PRVC/AC
[2016-06-21] MEDS ORDERED: SODIUM BICARBONATE 8.4% INJ 50 MEQ/50 ML SYR ONE (06:59)
[2016-06-21] MEDS ORDERED: DANTROLENE SODIUM 20 MG VIAL IV ONE (07:30)
--- NOTE | 2016-06-21 07:40 | HHI.CCPN ---
Subjective Remarks/Hospital Course 46 yo WM with PMH of celiac disease/dermatitis herpetiformis, depression, anxiety, PTSD who presents to [facility] [place] [facility] with AMS. He was last seen normal by roommates at 5 am today. They returned home to the residence to find him unresponsive in pool of vomit this afternoon. He was given Narcan without response. Combitube was placed by [facility]. He was intubated upon arrival to the ED by Dr. Mnotes. He was subsequently unresponsive with dilated and fixed pupils. CT brain and C-spine were negative. Chest x-ray is relatively unremarkable. WBC is 14.7. He is in acute kidney injury with creatinine of 1.75. Ammonia level is 52. CK is 2724. Lactic acid is 1.8. TSH is normal. Alcohol level is less than 3. Acetaminophen and salicylate level are low. Urine drug screen pending at time of admission. SUBJ 06/20/16: Significant deterioration in hemodynamic status overnight requiring maximum dose of Levophed and vasopressin. Previously patient was moving all 4 extremities. On my exam this a.m. patient has dilated pupils which are fixed, no corneal reflex. According to the bedside RN at least since midnight patient had been with dilated and fixed pupils. A stat MRI is pending at this time as well as an EEG. Patient does breathe over the vent. Remains profoundly acidemic. Remains on 100% FiO2 and 16 of PEEP for severe ARDS. Also Patient was loaded with Cerebyx after admission for possible seizures. Also overnight had bronchoscopy due to acutely worsening hypoxemia SUBJ 06/21/16: Patient remains extremely critically ill. Temp 105 now. LP done negative for infection. His clinical picture does not fit into NMS or malignant hyperthermia or serotonin syndrome. Will give empiric Dantrolene 150 mg IV x1. Serotonin syndrome is also a possibility but patient did not present with high fever. I think most likely patient is having methamphetamine toxicity as exhibited by mydriasis, myoclonus, cardiovascular collapse. Complicated by anoxic brain injury. Patient remains on Levophed 30 mcg/min, Dopamine 18 mcg/kg per min and Vasopressin 0.04 IU/min. His creatinine has worsened to 6.2 and patient is almost anuric. White count has increased to 17, 000, platelet count has dropped from 252 to 96, likely from DIC Objective Vital Signs Date Time Temp Pulse Resp B/P Pulse Ox O2 Delivery O2 Flow Rate FiO2 3/22/17 06:00 90 06/21/16 04:11 93 50 06/21/16 04:00 105.2 22 117/53 122/43 06/19/16 20:11 Ventilator Intake and Output 06/20/16 06/20/16 06/21/16 08:00 16:00 00:00 Intake Total 2604 ml 2474 ml 2637 ml Output Total 124 ml 455 ml 275 ml Balance 2480 ml 2019 ml 2362 ml Result Diagram: 06/21/16 0350 06/21/16 0350 Other Results Laboratory Tests Test 06/20/16 06/21/16 12:15 06:40 Blood Gas Puncture Site ART LINE ART LINE Blood Gas Patient Temperature 98.6 98.6 Blood Gas HCO3 14 mmol/L 16 mmol/L (22-26) (22-26) Blood Gas Base Excess -12.6 mmol/L -8.6 mmol/L (-2-2) (-2-2) Blood Gas Oxygen Saturation 94 % (90-100) 89 % (90-100) Arterial Blood pH 7.19 7.33 (7.380-7.420) (7.380-7.420) Arterial Blood Partial 38 mmHg (38-42) 32 mmHg (38-42) Pressure CO2 Arterial Blood Partial 200 mmHg 68 mmHg Pressure O2 (61-120) (61-120) Arterial Blood Oxygen Content 19.5 Vol % 15.4 Vol % (12.0-20.0) (12.0-20.0) Arterial Blood 0.2 % (0-4) 0.6 % (0-4) Carboxyhemoglobin Arterial Blood Methemoglobin 4.4 % (0-2) 3.0 % (0-2) Blood Gas Hemoglobin 14.5 G/DL 12.2 G/DL (12.0-16.0) (12.0-16.0) Oxygen Delivery Device VENTILATOR VENTILATOR Blood Gas Ventilator Setting PRVC/AC PRVC/AC Blood Gas Inspired Oxygen 100 % 50 % Objective Remarks GENERAL: Well-nourished, well-developed patient who is orotracheally intubated, very critical SKIN: Warm and dry. There is raised rash over left hand, no e/o superinfection. rash in bilateral groin intertriginous rash HEAD: Atraumatic. Normocephalic. EYES: Pupils are round 7 mm nonreactive. No corneal reflex. Bilateral conjunctival injection. ENT: No nasal bleeding or discharge. Mucous membranes pink and moist. Orotracheally intubated. NECK: Trachea midline. No JVD. CARDIOVASCULAR: Regular rate and rhythm. No murmurs rubs or gallops. Currently on 30 mics of Levophed and 0.04 units of vasopressin, Dopamine 18 g per KG per minute RESPIRATORY: Coarse bilateral breath sounds without wheeze. PRVC mode with PEEP 16 and FiO2 100% GASTROINTESTINAL: Abdomen soft, non-tender, nondistended. Bowel sounds hypoactive. : Hayward in place with very dark afia and blood tinged urine output MUSCULOSKELETAL: Status post right BKA. NEUROLOGICAL: Pupils are round 7 mm nonreactive. No corneal reflex. No nystagmus. No withdrawal to deep pain. Patient still breathing above the vent set rate Urinary Catheter: Yes Assessment to: Continue Vascular Central Line Catheter: Yes Assessment to: Continue A/P Assessment and Plan NEURO: Acute severe encephalopathy Probable anoxic brain injury Probable methamphetamine and cocaine toxicity Poly substance abuse Cocaine use, Amphetamine abuse Hyperammonemia Patient's acute encephalopathy most likely related to methamphetamine and cocaine toxicity (mydriasis, cardiovascular collapse, myoclonus) Differential diagnoses also include neuroleptic malignant syndrome, serotonin syndrome versus malignant hyperthermia-these diagnoses less likely We'll give single dose of Dantrolene sodium IV 150 mg Continue sedation with Versed and DC propofol. CT brain and C-spine negative. Stat MRI normal. EEG burst suppression pattern Urine drug screen positive for cocaine/amphetamine/benzo Neurology. Dr. Alexandra Loaded with Fosphenytoin 1500 mg/PE IV x1 due to concern for seizure/ nonconvulsive status. Continue phenytoin 100 mg IV every 8 hours LP 06/21/16 prelim neg for infection RESP: Acute hypoxemic respiratory failure ARDS Aspiration pneumonitis Severe metabolic acidosis Intubated in the ED 06/19/16 following Combitube placement by [facility] (etomidate and rocuronium for intubation in the ED) DuoNeb every 6 hours. Albuterol every 2 hours as needed Ventilator bundle. PRVC mode of ventilation with PEEP 16, FiO2 60%. Reduce PEEP to 12 as tolerated Prone therapy not pursued due to severe hemodynamic instability and need for frequent neuro exams without neuromuscular paralysis CV: Septic shock Lactic acidemia Patient initially normotensive upon admission for several hours but abruptly became hypotensive with BP 60/40. Started on levophed, and vasopressin CVL placed by Dr. Knight. Had to be started on dopamine also Currently on Levophed 30 mics per minute, vasopressin 0.04 international units, dopamine 8 g per KG per minute Continue hydrocortisone 100 mg IV q8. Bicarbonate infusion for severe metabolic acidosis F/u Echo. Troponin negative GI: Celiac disease Dermatitis herpetiformis (skin manifestation of celiac disease) NPO. OGT to LIWS. Hold dapsone due to methemoglobinemia FEN/RENAL: Acute kidney failure Acute rhabdomyolysis Hypokalemia Hypocalcemia Hypophosphatemia Hypomagnesemia Hayward in place. Monitor intake and output. Monitor electrolytes. Replace electrolytes as indicated Continue bicarbonate infusion at 150 mL per hour Follow-up CPK. Oligoanuric, nephrology consulted May need PARTY CHIEF ID: Leukocytosis Aspiration pneumonia Septic Shock ?UTI Received vancomycin and Zosyn in the emergency department-continue both, consult ID UA demonstrated 6 white cells and few bacteria. Follow-up urine culture LP 06/20 does not suggest meningitis or encephalitis Blood culture pending. F/U bronchial washing RML Continue vancomycin. Zosyn discontinued 06/20/16 and Fortaz and Flagyl along with acyclovir started to cover for meningitis HEME: Methemoglobinemia Hypofibrinogenemia Thrombocytopenia/DIC Patient has mild methemoglobinemia without cyanosis. Hold dapsone which has caused symptomatic methemoglobinemia in the past. ENDO: Euglycemic. TSH normal. PROPH: SCD left lower extremity for DVT prophylaxis. Protonix 40 mg IV daily for stress ulcer prophylaxis. ACCESS: R IJ CVL placed 06/20. R brachial arterial line placed Spoke with patient's , Alena extensively on 06/20/16 and 06/21/16 Critical care time 78 minutes exclusive separately billable procedures. Meghan Ugarte MD Jun 21, 2016 07:40
[2016-06-21] MEDS ORDERED: SODIUM BICARBONATE 8.4% INJ 50 MEQ/50 ML SYR IV ONE (07:45)
[2016-06-21] MEDS ORDERED: SODIUM CHLOR 0.9% 1000 ML INJ 1,000 ML IV SCH ×2 (07:45→08:00)
[2016-06-21] MEDS: ARTIFICIAL TEARS OPTH OINT 3.5 APPLIC/3.5 GM TUBO EACH EYE SCH ×3 (08:36→21:27)
[2016-06-21] MEDS: PANTOPRAZOLE SODIUM 40 MG VIAL IV SCH (08:37)
[2016-06-21] MEDS: CHLORHEXIDINE 0.12% (ORAL KIT) 15 ML CUP MT SCH ×2 (08:37→21:01)
[2016-06-21] MEDS: LACTULOSE SYRUP 20 GM/30 ML CUP TUBE SCH ×3 (08:37→18:01)
[2016-06-21] MEDS: MAGNESIUM SULFATE 1 GM PREMIX 100 ML IV SCH ×2 (08:37→09:37)
[2016-06-21] MEDS ORDERED: ACETAMINOPHEN 1000 MG/100 ML VIAL IV ONE (08:45)
[2016-06-21] MEDS ORDERED: LORazepam 2 MG/ML VIAL IV PRN (10:00)
[2016-06-21] MEDS ORDERED: ROCURONIUM INJ 50 MG/5 ML VIAL IV ONE (10:00)
[2016-06-21] MEDS ORDERED: ARTIFICIAL TEARS OPTH OINT 3.5 APPLIC/3.5 GM TUBO EACH EYE PRN (10:00)
[2016-06-21] MEDS ORDERED: MEPERIDINE HCL 25 MG/ML VIAL IVP PRN (10:00)
[2016-06-21] MEDS ORDERED: SODIUM CHLOR 0.9% 1000 ML INJ 1,000 ML IV ONE (10:00)
[2016-06-21 10:14] LABS: CKMB 5.9 NG/ML (0.5-3.6)
[2016-06-21] MEDS ORDERED: VASOPRESSIN INJ 40 UNITS in SODIUM CHLORIDE 0.9% INJ 98 ML IV SCH (10:15)
[2016-06-21] MEDS ORDERED: TERBUTALINE INJ 1 MG/ML AMP SQ PRN (10:15)
[2016-06-21] MEDS ORDERED: NOREPINEPHRINE INJ 16 MG in SODIUM CHLOR 0.9% 250 ML INJ 234 ML IV SCH (10:15)
[2016-06-21] MEDS ORDERED: CISATRACURIUM INJ 100 MG in SODIUM CHLOR 0.9% 250 ML INJ 240 ML IV SCH (10:30)
[2016-06-21] MEDS ORDERED: DOPamine INJ 800 MG in SODIUM CHLORID 0.9% 500 ML INJ 495 ML IV SCH (10:30)
--- NOTE | 2016-06-21 10:58 | PD.PROCEDR ---
Central Line Procedure REASON FOR PROCEDURE Hyperpyrexia PROCEDURE PERFORMED Heat exchange catheter placement at the right femoral vein CONSENT Informed consent for procedure was obtained. The risks and benefits of the procedure were discussed to include but limited to bleeding, clot formation, infection, and even . ANESTHESIA Local injection of 1% Lidocaine DESCRIPTION OF THE PROCEDURE The patient was placed in supine, mild Trendelenburg position. The area was exposed and cleansed with ChloraPrep, times two. Large sterile drape was used to cover the patient, with the site exposed, under sterile conditions including cap, face mask, sterile gown, and sterile gloves. On single attempt, the introducer needle was inserted with negative pressure in syringe and venous flash was obtained. The guide wire was then advanced without any restriction and the needle was removed. The dilator was used without any complications. Using Seldinger technique the 45 cm 10 Egyptian 5 lm heat exchange catheter catheter was advanced over the guide wire to a depth of 40 centimeters. The guide wire was removed. All ports were aspirated with dark venous blood return and flushed easily with sterile saline. All ports were capped. Antibiotic disc was placed around central line at puncture site. The central line was secured to the skin with two interrupted 2.0 silk sutures. The area was bandaged with sterile see-through central line bandage. COMPLICATIONS: No apparent complications ESTIMATED BLOOD LOSS: Less than 1 cc. Meghan Ugarte MD Jun 21, 2016 10:58
[2016-06-21] MEDS ORDERED: WATER STERILE FOR IV ONE ×2 (11:00→15:00)
[2016-06-21] MEDS ORDERED: DANTROLENE IV ONE ×2 (11:00→15:00)
[2016-06-21] MEDS: PHENYLEPHRINE INJ 40 MG in SODIUM CHLORID 0.9% 500 ML INJ 496 ML IV SCH ×2 (11:38→16:28)
[2016-06-21] MEDS: MIDAZOLAM 100 MG/ML INJ 100 ML IV SCH (11:38)
--- NOTE | 2016-06-21 11:38 | HHI.IDPN ---
Note Infectious Disease Note Patient is intubated and on the ventilator. Unresponsive. On 30mcg of Levophed and 20 mg of Dopamine. Temps as high as [address] apparatus in place. CSF results noted. Anuric. Cultures has no growth. WBC elevated. Patient was found down in his home and was brought to the emergency department for evaluation. The patient had altered mental status on presentation. PAST MEDICAL HISTORY 1. PTSD 2. Anxiety depression 3. History of bilateral pulmonary emboli 4. History of IVC filter which was subsequently removed. 5. Right BKA in 2012 6. Gastric bypass in 2003 7. Cholecystectomy 2003 ALLERGIES [facility] MEDICATIONS 1. Piperacillin/tazobactam 2. Vancomycin 3. Ceftazidime. 4. Flagyl. SOCIAL HISTORY The patient is . He has positive tobacco use. Positive alcohol use. Positive illicit drug use. The patient with positive cocaine drug screen. REVIEW OF SYSTEMS Unable to obtain. FAMILY HISTORY Unable to obtain. OBJECTIVE: Vital Signs Date Time Temp Pulse Resp B/P Pulse Ox O2 Delivery O2 Flow Rate FiO2 06/21/16 09:55 93 75 06/21/16 06:00 90 06/21/16 04:11 93 50 06/21/16 04:00 105.2 89 22 117/53 94 122/43 06/21/16 04:00 89 06/21/16 04:00 50 06/21/16 02:00 83 06/21/16 01:29 22 06/21/16 00:10 95 50 06/21/16 00:00 50 06/21/16 00:00 81 06/21/16 00:00 104.0 81 22 118/57 94 134/53 06/20/16 22:00 81 06/20/16 20:00 50 06/20/16 20:00 78 06/20/16 20:00 103.0 78 28 100/59 95 109/48 06/20/16 19:27 96 50 06/20/16 18:00 83 06/20/16 16:00 88 06/20/16 16:00 50 06/20/16 16:00 102.6 88 22 124/60 96 126/60 06/20/16 15:33 97 100 06/20/16 14:00 84 06/20/16 13:25 95 70 06/20/16 12:00 98 06/20/16 12:00 70 06/20/16 12:00 101.3 98 22 118/59 98 06/20/16 11:20 95 100 06/20/16 06/20/16 06/21/16 15:00 23:00 07:00 Intake Total 2474 ml 2637 ml 2234 ml Output Total 455 ml 275 ml 50 ml Balance 2019 ml 2362 ml 2184 ml IV Total 2474 ml 2637 ml 2204 ml Other 30 ml Output Urine Total 455 ml 275 ml 50 ml Gastric Drainage Total 0 ml # Bowel Movements 0 0 Laboratory Tests Test 06/19/16 06/20/16 06/21/16 18:08 03:25 03:50 White Blood Count 14.7 TH/MM3 5.3 TH/MM3 17.0 TH/MM3 Red Blood Count 4.35 MIL/MM3 4.30 MIL/MM3 3.72 MIL/MM3 Hemoglobin 14.4 GM/DL 14.9 GM/DL 12.5 GM/DL Hematocrit 44.8 % 45.3 % 37.8 % Mean Corpuscular Volume 103.0 FL 105.3 FL 101.5 FL Mean Corpuscular Hemoglobin 33.1 PG 34.6 PG 33.6 PG Mean Corpuscular Hemoglobin 32.2 % 32.9 % 33.1 % Concent Red Cell Distribution Width 17.0 % 17.1 % 16.8 % Platelet Count 268 TH/MM3 252 TH/MM3 96 TH/MM3 Mean Platelet Volume 9.9 FL 10.4 FL 10.1 FL Neutrophils (%) (Auto) 88.2 % 88.1 % 89.7 % Lymphocytes (%) (Auto) 4.3 % 8.3 % 2.7 % Monocytes (%) (Auto) 7.1 % 2.9 % 7.5 % Eosinophils (%) (Auto) 0.0 % 0.6 % 0.0 % Basophils (%) (Auto) 0.4 % 0.1 % 0.1 % Neutrophils # (Auto) 13.0 TH/MM3 4.7 TH/MM3 15.3 TH/MM3 Lymphocytes # (Auto) 0.6 TH/MM3 0.4 TH/MM3 0.5 TH/MM3 Monocytes # (Auto) 1.0 TH/MM3 0.2 TH/MM3 1.3 TH/MM3 Eosinophils # (Auto) 0.0 TH/MM3 0.0 TH/MM3 0.0 TH/MM3 Basophils # (Auto) 0.1 TH/MM3 0.0 TH/MM3 0.0 TH/MM3 CBC Comment DIFF FINAL AUTO DIFF AUTO DIFF Differential Comment AUTO DIFF FINAL DIFF CONFIRMED MANUAL Platelet Estimate NORMAL LOW Platelet Morphology Comment NORMAL NORMAL Differential Total Cells 100 Counted Neutrophils % (Manual) 67 % Band Neutrophils % 10 % Lymphocytes % 4 % Monocytes % 7 % Neutrophils # (Manual) 15.1 TH/MM3 Metamyelocytes 12 % Toxic Vacuolation PRESENT Dohle Bodies PRESENT Red Cell Morphology Comment NORMAL Laboratory Tests Test 06/19/16 06/19/16 06/20/16 06/20/16 18:05 18:08 00:00 00:35 Sodium Level 140 MEQ/L Potassium Level 4.0 MEQ/L Chloride Level 107 MEQ/L Carbon Dioxide Level 25.3 MEQ/L Anion Gap 8 MEQ/L Blood Urea Nitrogen 24 MG/DL Creatinine 1.75 MG/DL Estimat Glomerular Filtration 43 ML/MIN Rate Random Glucose 112 MG/DL Calcium Level 8.3 MG/DL Total Bilirubin 1.9 MG/DL Aspartate Amino Transf 91 U/L (AST/SGOT) Alanine Aminotransferase 63 U/L (ALT/SGPT) Alkaline Phosphatase 105 U/L Ammonia 52 MCMOL/L Total Creatine Kinase 2724 U/L 2581 U/L Creatine Kinase MB 17.4 NG/ML 14.5 NG/ML Creatine Kinase MB % 0.6 % 0.6 % Troponin I LESS THAN 0.02 0.02 NG/ML NG/ML Total Protein 7.9 GM/DL Albumin 3.9 GM/DL Lipase 237 U/L Thyroid Stimulating Hormone 0.366 uIU/ML 3rd Gen Lactic Acid Level 1.8 mmol/L 3.6 mmol/L 2.9 mmol/L Test 06/20/16 06/20/16 06/20/16 06/21/16 03:25 03:29 08:32 03:50 Sodium Level 144 MEQ/L 137 MEQ/L Potassium Level 3.3 MEQ/L 3.6 MEQ/L Chloride Level 115 MEQ/L 105 MEQ/L Carbon Dioxide Level 19.8 MEQ/L 16.9 MEQ/L Anion Gap 9 MEQ/L 15 MEQ/L Blood Urea Nitrogen 26 MG/DL 42 MG/DL Creatinine 2.52 MG/DL 6.18 MG/DL Estimat Glomerular Filtration 28 ML/MIN 10 ML/MIN Rate Random Glucose 141 MG/DL 228 MG/DL Calcium Level 6.7 MG/DL 7.1 MG/DL Protein Corrected Calcium 7.5 MG/DL 8.1 MG/DL Phosphorus Level 2.2 MG/DL Magnesium Level 1.6 MG/DL 1.0 MG/DL Total Bilirubin 1.3 MG/DL 1.3 MG/DL Aspartate Amino Transf 72 U/L 200 U/L (AST/SGOT) Alanine Aminotransferase 44 U/L 64 U/L (ALT/SGPT) Alkaline Phosphatase 75 U/L 41 U/L Ammonia 72 MCMOL/L Total Creatine Kinase 2260 U/L 4948 U/L Creatine Kinase MB 11.6 NG/ML 5.9 NG/ML Creatine Kinase MB % 0.5 % 0.1 % Total Protein 5.4 GM/DL 5.3 GM/DL Albumin 2.5 GM/DL 2.3 GM/DL Lactic Acid Level 2.6 mmol/L 3.5 mmol/L Microbiology Date/Time Procedure Status Source Growth 06/19/16 18:02 Aerobic Blood Culture - Preliminary Resulted Blood Peripheral NO GROWTH IN 1 DAY 06/19/16 18:02 Anaerobic Blood Culture - Preliminary Resulted Blood Peripheral NO GROWTH IN 1 DAY 06/19/16 18:05 Urine Culture - Final Complete Urine Catheterized Urine NO GROWTH IN 48 HOURS. 06/19/16 18:12 Aerobic Blood Culture - Preliminary Resulted Blood Peripheral NO GROWTH IN 2 DAYS 06/19/16 18:12 Anaerobic Blood Culture - Preliminary Resulted Blood Peripheral NO GROWTH IN 2 DAYS 06/20/16 01:00 Gram Stain - Final Resulted Sputum Endotracheal 06/20/16 01:00 Sputum Culture Resulted Sputum Endotracheal Pending 06/20/16 06:00 Gram Stain - Final Resulted Bronchial Washings Right Mid Lobe 06/20/16 06:00 Bronchial Culture Resulted Bronchial Washings Right Mid Lobe Pending 06/20/16 17:45 Gram Stain - Final Resulted Cerebral Spinal Fluid Lumbar Puncture 06/20/16 17:45 CSF Culture - Preliminary Resulted Cerebral Spinal Fluid Lumbar Puncture NO GROWTH IN 24 HOURS. 06/20/16 17:45 Acid Fast Stain Received Cerebral Spinal Fluid Lumbar Puncture Pending 06/20/16 17:45 Mycobacterial Culture Received Cerebral Spinal Fluid Lumbar Puncture Pending 06/20/16 17:45 Fungal Smear - Final Resulted Cerebral Spinal Fluid Lumbar Puncture NO FUNGAL ELEMENTS SEEN. 06/20/16 17:45 Fungal Culture Resulted Cerebral Spinal Fluid Lumbar Puncture Pending Nasal screen MRSA positive. PHYSICAL EXAM GENERAL: On a ventilator. Unresponsive. HEENT: The sclerae are nonicteric. Conjunctival edema erythema. Left periorbital ecchymosis. Mucous membranes are moist. NECK: No adenopathy. LUNGS: Decreased breath sounds throughout. HEART: Regular without audible murmurs or rubs or gallops. ABDOMEN: Obese, soft, positive bowel sounds. No masses palpable. EXTREMITIES: No clubbing, cyanosis or edema. Right [id number] amputation stump is intact. The distal left lower extremity is cold at the feet. The hands are warm to palpation. SKIN: There is a macular rash at the right hand dorsum. The patient has multiple tattoos over the upper extremities. No diffuse rash. NEUROLOGIC: Unable to assess. IMPRESSION 1. Septic shock in a patient who presented with altered mental status and without antecedent acute illness. The patient presented with hypotension along with leukocytosis, acute kidney disease and acute respiratory failure and lactic Acidosis. 2. Acute respiratory failure 3. Acute kidney disease 4. Bilateral lung infiltrates 5. Probable urinary tract infection 6. Altered mental status. 7. High grade Fever. CSF does not reflect infection. The fever is probably related to drug ingestion. No clear evidence of infection on cultures. RECOMMENDATIONS 1. Monitor the urine function and continue vancomycin. Level elevated dose to be adjusted based on levels. Will recheck level in am. 2. Continue Ceftazidime. 3. Continue Metronidazole. 4. Continue Acyclovir. 5. Add Micafungin. 6. Monitor CSF studies. 7. Monitor blood, sputum cultures. Virgil Campbell MD Jun 21, 2016 11:38
[2016-06-21] MEDS ORDERED: MICAFUNGIN INJ 100 MG in SODIUM CHLORIDE 0.9% INJ 100 ML IV SCH (12:00)
[2016-06-21 13:16] LABS: AUTOMATED NEUTROPHIL # 8.4 TH/MM3 (1.8-7.7); BASOPHIL # 0.1 TH/MM3 (0-0.2); BASOPHIL % 0.6 % (0.0-2.0); EOSINOPHIL % 0.1 % (0.0-4.0); HEMATOCRIT 35.8 % (39.0-51.0); LYMPH % 10.2 % (9.0-44.0); MEAN CORPUSCULAR HEMOGLOBIN 35.3 PG (27.0-34.0); MEAN CORPUSCULAR HGB CONC 34.6 % (32.0-36.0); MONO % 3.9 % (0.0-8.0); NEUT % 85.2 % (16.0-70.0); PLATELET COUNT 35 TH/MM3 (150-450); RED BLOOD COUNT 3.51 MIL/MM3 (4.50-5.90); RED CELL DISTRIBUTION WIDTH 17.6 % (11.6-17.2); WHITE BLOOD COUNT 9.9 TH/MM3 (4.0-11.0)
[2016-06-21] MEDS: PHENYTOIN INJ 100 MG/2 ML VIAL IV SCH ×2 (13:16→21:26)
[2016-06-21 13:51] LABS: HEMO FLAGS AUTO DIFF
[2016-06-21 13:56] LABS: BANDS 2 % (0-6); CORRECTED NUCLEATED RBC 7 /100 WBC (0-0); NEUTROPHIL # MANUAL DIFF 8.1 TH/MM3 (1.8-7.7); PLATELET ESTIMATE SMEAR LOW (NORMAL); PLATELET MORPHOLOGY NORMAL (NORMAL); POLYS (SEG NEUTROPHILS) 80 % (16-70); SCAN/DIFF FINAL DIFF MANUAL; TOXIC GRANULATION 2+ (NORMAL); WBC DIFF SAMPLE 100
[2016-06-21 14:06] LABS: BICARBONATE 17.8 MEQ/L (21.0-32.0); POTASSIUM 3.6 MEQ/L (3.5-5.1); TOTAL BILIRUBIN ADULT 1.6 MG/DL (0.2-1.0)
[2016-06-21 14:13] LABS: CALCIUM-PROTEIN CORRECTED 6.8 MG/DL (8.5-10.1)
[2016-06-21] MEDS ORDERED: HEPARIN SODIUM - IV 10,000 UNITS/10 ML VIAL ONE (14:50)
--- NOTE | 2016-06-21 14:58 | PD.PROCEDR ---
Central Line Procedure REASON FOR PROCEDURE Central venous access PROCEDURE PERFORMED Central line placement: L subclavian VasCath for CVVH CONSENT Informed consent for procedure was obtained and time out performed. The risks and benefits of the procedure were discussed to include but limited to bleeding , clot formation, infection, and even . ANESTHESIA Local injection of 1% Lidocaine DESCRIPTION OF THE PROCEDURE The patient was placed in supine, mild Trendelenburg position. The area was exposed and cleansed with ChloraPrep, times two. Large sterile drape was used to cover the patient, with the site exposed, under sterile conditions including cap, face mask, sterile gown, and sterile gloves. On single attempt, the introducer needle was inserted with negative pressure in syringe and venous flash was obtained. The guide wire was then advanced without any restriction and the needle was removed. The dilator was used without any complications. Using Seldinger technique the 24 CM 14 F two lumen VasCath was advanced over the guide wire to a depth of 22 centimeters. The guide wire was removed. All ports were aspirated with dark venous blood return and flushed easily with sterile saline. All ports were capped. Antibiotic disc was placed around central line at puncture site. The central line was secured to the skin with two interrupted 2.0 silk sutures. The area was bandaged with sterile see- through central line bandage. COMPLICATIONS: No apparent complications ESTIMATED BLOOD LOSS: Less than 1 cc. Meghan Ugarte MD Jun 21, 2016 14:58
[2016-06-21] MEDS ORDERED: SODIUM CHLORIDE 0.9% FLUSH 10 ML FLUSH IVF PRN (15:00)
[2016-06-21] MEDS ORDERED: HEPARIN SODIUM - IV 10,000 UNITS/10 ML VIAL IVF PRN (15:00)
--- NOTE | 2016-06-21 16:02 | RADRPT ---
EXAM DATE/TIME: 06/21/2016 15:08 [facility] COMPARISON: CHEST SINGLE AP, June 21, 2016, 2:16. INDICATIONS : Left VasCath placement MEDICAL HISTORY : None. SURGICAL HISTORY : None. ENCOUNTER: Subsequent ACUITY: 4 - 6 days PAIN SCORE: Non-responsive. LOCATION: Left chest FINDINGS: A left subclavian VasCath has been placed and has its tip in the right atrium near the junction with the superior vena cava. There is no pneumothorax. A right internal jugular central line has its tip in the superior vena cava. The endotracheal tube has its tip 3 cm above the sanjay in good position . A nasogastric tube has its tip below the diaphragm. The heart is stable. Bilateral pulmonary inf iltrates are again noted consistent with pulmonary edema versus pneumonia. CONCLUSION: 1. No pneumothorax status post placement of left subclavian VasCath which has its tip at the junction of the superior vena cava and right atrium. 2. Multiple tubes and lines are stable. 3. No significant change in the bilateral pulmonary infiltrates consistent with pulmonary vascular co ngestion versus pneumonia. Clinical correlation is recommended. Tristen Pretty MD on June 21, 2016 at 15:57 Board Certified Radiologist. This report was verified electronically.
[2016-06-21] MEDS ORDERED: CALCIUM CHLORIDE INJ 2 GM in SODIUM CHLORIDE 0.9% INJ 100 ML IV ONE (16:30)
[2016-06-21] MEDS ORDERED: VANCOMYCIN 1,500 MG/NS 500 ML IV ONE ×2 (18:00)
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
--- NOTE | 2016-06-21 21:32 | MG ---
cc: ANGELA BUSTILLO MD Lab No: Date: 06/21/2016 Age: Sex: M Race: EEG NUMBER [id number] DATE OF 1970 INDICATION A 46-year-old unresponsive, history of unresponsive state. DESCRIPTION Flat line type of appearance occurring throughout the recording with rare mild delta activity, 1-2 Hz, 5 microvolts. Single lead EKG showing sinus rhythm. INTERPRETATION Generalized suppression noted throughout EEG. Clinical correlation. Angela Bustillo MD MG/KK /9:00 PM /9:21 PM
[2016-06-22] MEDS ORDERED: cefTAZidime INJ 2,000 MG in SODIUM CHLORIDE 0.9% INJ 100 ML IV SCH (05:00)
--- NOTE | 2016-06-22 06:41 | DEATH SUM ---
Summary Demographics Date Pronounced : Jun 21, 2016 Time Of : 690 Pronounced By: Nuris Melendez/Peter Mahoney RN Preliminary Cause of : Multi Organ Failure Meghan Ugarte MD Jun 22, 2016 06:41
--- NOTE | 2016-06-22 06:53 | HHI.DS ---
Summary Note Date of : Jun 21, 2016 Time Of : 2254 Admission Date Jun 19, 2016 at 19:35 Admitting Diagnosis AMS, respiratory failure, renal insufficiency, rhabdomyolysis Diagnosis at Time of : (1) Refractory shock ICD Code: R57.8 Diagnosis: Principal (2) Anoxic brain injury ICD Code: G93.1 Diagnosis: Principal (3) Septic shock ICD Code: A41.9 Diagnosis: Principal (4) Hyperpyrexia ICD Code: R50.9 Diagnosis: Principal (5) Methamphetamine toxicity Diagnosis: Principal (6) Acute hypoxemic respiratory failure ICD Code: J96.01 Diagnosis: Principal (7) Acute encephalopathy ICD Code: G93.40 Diagnosis: Principal (8) Acute kidney failure ICD Code: N17.9 Diagnosis: Principal (9) Poly drug overdose Diagnosis: Principal (10) Rhabdomyolysis ICD Code: M62.82 Diagnosis: Principal (11) Methemoglobinemia ICD Code: D74.9 Diagnosis: Principal Procedures Procedure in ICU: RIJ central line, bronchoscopy, right brachial arterial line placement, right femoral heat exchange catheter placement, left subclavian Vas- Cath placement Brief History 46 yo WM with PMH of celiac disease/dermatitis herpetiformis, depression, anxiety, PTSD who presents to [facility] [place] [facility] with AMS. He was last seen normal by roommates at 5 am today. They returned home to the residence to find him unresponsive in pool of vomit this afternoon. He was given Narcan without response. Combitube was placed by [facility]. He was intubated upon arrival to the ED by Dr. Montes. He was subsequently unresponsive with dilated and fixed pupils. CT brain and C-spine were negative. Chest x-ray is relatively unremarkable. WBC is 14.7. He is in acute kidney injury with creatinine of 1.75. Ammonia level is 52. CK is 2724. Lactic acid is 1.8. TSH is normal. Alcohol level is less than 3. Acetaminophen and salicylate level are low. Urine drug screen positive for cocaine, benzodiazepine and methamphetamine CBC/BMP: 06/21/16 1255 06/21/16 1255 Significant Findings Laboratory Tests Test 06/19/16 06/19/16 06/19/16 06/19/16 17:52 18:05 18:08 18:52 Urine Amphetamines Screen POS (NEG) Urine Benzodiazepines Screen POS (NEG) Urine Cocaine Screen POS (NEG) Urine Color DARK-BROWN (YELLW/STRAW) Urine Turbidity CLOUDY (CLEAR) Urine Protein 100 mg/dL (NEG-TRACE) Urine Occult Blood LARGE (NEG) Urine RBC 22 /hpf (0-3) Urine WBC 6 /hpf (0-5) Urine Bacteria FEW /hpf (NONE) Urine Mucus FEW /lpf (OCC) Blood Urea Nitrogen 24 MG/DL (7-18) Creatinine 1.75 MG/DL (0.60-1.30) Estimat Glomerular Filtration 43 ML/MIN (>89) Rate Random Glucose 112 MG/DL (74-106) Calcium Level 8.3 MG/DL (8.5-10.1) Total Bilirubin 1.9 MG/DL (0.2-1.0) Aspartate Amino Transf 91 U/L (15-37) (AST/SGOT) Ammonia 52 MCMOL/L (11-32) Total Creatine Kinase 2724 U/L (39-308) Creatine Kinase MB 17.4 NG/ML (0.5-3.6) Troponin I LESS THAN 0.02 NG/ML (0.02-0.05) Salicylates Level LESS THAN 1.7 MG/DL (2.8-20.0) Acetaminophen Level LESS THAN 2.0 MCG/ML (10.0-30.0) White Blood Count 14.7 TH/MM3 (4.0-11.0) Red Blood Count 4.35 MIL/MM3 (4.50-5.90) Mean Corpuscular Volume 103.0 FL (80.0-100.0) Neutrophils (%) (Auto) 88.2 % (16.0-70.0) Lymphocytes (%) (Auto) 4.3 % (9.0-44.0) Neutrophils # (Auto) 13.0 TH/MM3 (1.8-7.7) Lymphocytes # (Auto) 0.6 TH/MM3 (1.0-4.8) Monocytes # (Auto) 1.0 TH/MM3 (0-0.9) Prothrombin Time 12.0 SEC (9.8-11.6) Blood Gas HCO3 21 mmol/L (22-26) Blood Gas Base Excess -4.9 mmol/L (-2-2) Arterial Blood pH 7.29 (7.380-7.420) Arterial Blood Partial 45 mmHg (38-42) Pressure CO2 Arterial Blood Partial 390 mmHG Pressure O2 (61-120) Arterial Blood Oxygen Content 20.2 Vol % (12.0-20.0) Arterial Blood Methemoglobin 5.2 % (0-2) Test 06/20/16 06/20/16 06/20/16 06/20/16 00:00 00:35 03:25 03:29 Lactic Acid Level 3.6 mmol/L 2.9 mmol/L 2.6 mmol/L (0.4-2.0) (0.4-2.0) (0.4-2.0) Total Creatine Kinase 2581 U/L 2260 U/L (39-308) (39-308) Creatine Kinase MB 14.5 NG/ML 11.6 NG/ML (0.5-3.6) (0.5-3.6) Red Blood Count 4.30 MIL/MM3 (4.50-5.90) Mean Corpuscular Volume 105.3 FL (80.0-100.0) Mean Corpuscular Hemoglobin 34.6 PG (27.0-34.0) Neutrophils (%) (Auto) 88.1 % (16.0-70.0) Lymphocytes (%) (Auto) 8.3 % (9.0-44.0) Lymphocytes # (Auto) 0.4 TH/MM3 (1.0-4.8) Prothrombin Time 12.3 SEC (9.8-11.6) Activated Partial 21.7 SEC Thromboplast Time (24.3-30.1) Fibrinogen 226 mg/dL (227-377) Potassium Level 3.3 MEQ/L (3.5-5.1) Chloride Level 115 MEQ/L (98-107) Carbon Dioxide Level 19.8 MEQ/L (21.0-32.0) Blood Urea Nitrogen 26 MG/DL (7-18) Creatinine 2.52 MG/DL (0.60-1.30) Estimat Glomerular Filtration 28 ML/MIN (>89) Rate Random Glucose 141 MG/DL (74-106) Calcium Level 6.7 MG/DL (8.5-10.1) Protein Corrected Calcium 7.5 MG/DL (8.5-10.1) Phosphorus Level 2.2 MG/DL (2.5-4.9) Total Bilirubin 1.3 MG/DL (0.2-1.0) Aspartate Amino Transf 72 U/L (15-37) (AST/SGOT) Ammonia 72 MCMOL/L (11-32) Total Protein 5.4 GM/DL (6.4-8.2) Albumin 2.5 GM/DL (3.4-5.0) Test 06/20/16 06/20/16 06/20/16 06/20/16 05:50 06:40 08:32 12:15 Venous Blood pH 7.06 (7.360-7.400) Venous Blood Partial Pressure 55 mmHg (44-48) CO2 Venous Blood Partial Pressure 51 mmHg (35-40) O2 Venous Blood HCO3 15 mmol/L (22-26) Venous Blood Base Excess -13.4 mmol/L (-2-2) Blood Gas HCO3 14 mmol/L 14 mmol/L (22-26) (22-26) Blood Gas Base Excess -13.9 mmol/L -12.6 mmol/L (-2-2) (-2-2) Arterial Blood pH 7.13 7.19 (7.380-7.420) (7.380-7.420) Arterial Blood Partial 43 mmHg (38-42) Pressure CO2 Arterial Blood Partial 150 mmHg 200 mmHg Pressure O2 (61-120) (61-120) Arterial Blood Methemoglobin 3.8 % (0-2) 4.4 % (0-2) Lactic Acid Level 3.5 mmol/L (0.4-2.0) Test 06/20/16 06/20/16 06/21/16 06/21/16 15:23 17:45 03:50 06:40 Phenytoin (Dilantin) Level 7.9 MCG/ML (10.0-20.0) CSF RBC (Tube 4) 61 /MM3 (NONE) CSF Glucose 141 MG/DL (40-80) CSF Lactic Acid 4.4 MMOL/L (0.0-3.0) White Blood Count 17.0 TH/MM3 (4.0-11.0) Red Blood Count 3.72 MIL/MM3 (4.50-5.90) Hemoglobin 12.5 GM/DL (13.0-17.0) Hematocrit 37.8 % (39.0-51.0) Mean Corpuscular Volume 101.5 FL (80.0-100.0) Platelet Count 96 TH/MM3 (150-450) Neutrophils (%) (Auto) 89.7 % (16.0-70.0) Lymphocytes (%) (Auto) 2.7 % (9.0-44.0) Neutrophils # (Auto) 15.3 TH/MM3 (1.8-7.7) Lymphocytes # (Auto) 0.5 TH/MM3 (1.0-4.8) Monocytes # (Auto) 1.3 TH/MM3 (0-0.9) Band Neutrophils % 10 % (0-6) Lymphocytes % 4 % (9-44) Neutrophils # (Manual) 15.1 TH/MM3 (1.8-7.7) Metamyelocytes 12 % (0-1) Toxic Vacuolation PRESENT (NONE SEEN) Dohle Bodies PRESENT (NONE SEEN) Platelet Estimate LOW (NORMAL) Carbon Dioxide Level 16.9 MEQ/L (21.0-32.0) Blood Urea Nitrogen 42 MG/DL (7-18) Creatinine 6.18 MG/DL (0.60-1.30) Estimat Glomerular Filtration 10 ML/MIN (>89) Rate Random Glucose 228 MG/DL (74-106) Calcium Level 7.1 MG/DL (8.5-10.1) Protein Corrected Calcium 8.1 MG/DL (8.5-10.1) Magnesium Level 1.0 MG/DL (1.5-2.5) Total Bilirubin 1.3 MG/DL (0.2-1.0) Aspartate Amino Transf 200 U/L (15-37) (AST/SGOT) Alkaline Phosphatase 41 U/L (45-117) Total Creatine Kinase 4948 U/L (39-308) Creatine Kinase MB 5.9 NG/ML (0.5-3.6) Total Protein 5.3 GM/DL (6.4-8.2) Albumin 2.3 GM/DL (3.4-5.0) Blood Gas HCO3 16 mmol/L (22-26) Blood Gas Base Excess -8.6 mmol/L (-2-2) Blood Gas Oxygen Saturation 89 % (90-100) Arterial Blood pH 7.33 (7.380-7.420) Arterial Blood Partial 32 mmHg (38-42) Pressure CO2 Arterial Blood Methemoglobin 3.0 % (0-2) Test 06/21/16 12:55 Red Blood Count 3.51 MIL/MM3 (4.50-5.90) Hemoglobin 12.4 GM/DL (13.0-17.0) Hematocrit 35.8 % (39.0-51.0) Mean Corpuscular Volume 102.0 FL (80.0-100.0) Mean Corpuscular Hemoglobin 35.3 PG (27.0-34.0) Red Cell Distribution Width 17.6 % (11.6-17.2) Platelet Count 35 TH/MM3 (150-450) Neutrophils (%) (Auto) 85.2 % (16.0-70.0) Neutrophils # (Auto) 8.4 TH/MM3 (1.8-7.7) Neutrophils % (Manual) 80 % (16-70) Neutrophils # (Manual) 8.1 TH/MM3 (1.8-7.7) Nucleated Red Blood Cells 7 /100 WBC (0-0) Toxic Granulation 2+ (NORMAL) Platelet Estimate LOW (NORMAL) Sodium Level 135 MEQ/L (136-145) Carbon Dioxide Level 17.8 MEQ/L (21.0-32.0) Anion Gap 16 MEQ/L (5-15) Blood Urea Nitrogen 49 MG/DL (7-18) Creatinine 7.63 MG/DL (0.60-1.30) Estimat Glomerular Filtration 8 ML/MIN (>89) Rate Random Glucose 234 MG/DL (74-106) Calcium Level 5.8 MG/DL (8.5-10.1) Protein Corrected Calcium 6.8 MG/DL (8.5-10.1) Total Bilirubin 1.6 MG/DL (0.2-1.0) Aspartate Amino Transf 311 U/L (15-37) (AST/SGOT) Alanine Aminotransferase 86 U/L (12-78) (ALT/SGPT) Total Protein 4.8 GM/DL (6.4-8.2) Albumin 1.8 GM/DL (3.4-5.0) Imaging Reviewed Hospital Course 46 yo WM with PMH of celiac disease/dermatitis herpetiformis, depression, anxiety, PTSD who presents to [facility] [place] [facility] with AMS. He was last seen normal by roommates at 5 am today. They returned home to the residence to find him unresponsive in pool of vomit in the afternoon. He was given Narcan without response. Combitube was placed by E [facility]. He was intubated upon arrival to the ED by Dr. Montes. He was subsequently unresponsive with dilated and fixed pupils. CT brain and C-spine were negative. WBC is 14.7. He is in acute kidney injury with creatinine of 1.75. Ammonia level is 52. CK is 2724. Lactic acid is 1.8. TSH is normal. Alcohol level is less than 3. UDS positive for cocaine and benzodiazepines and methamphetamine SUBJ 06/20/16: Significant deterioration in hemodynamic status overnight requiring maximum dose of Levophed and vasopressin. Previously patient was moving all 4 extremities. On my exam patient had dilated pupils which are fixed , no corneal reflex. According to the bedside RN at least since midnight patient had been with dilated and fixed pupils. A stat MRI was done which showed normal exam and EEG showed burst suppression pattern. Patient does breathe over the vent. Remains profoundly acidemic. Remains on 100% FiO2 and 16 of PEEP for severe ARDS. Also Patient was loaded with Cerebyx after admission for possible seizures. Also overnight had bronchoscopy due to acutely worsening hypoxemia. BAL with staph aureus. Later in the evening patient started spiking fever up to 103 and the lumbar puncture was performed which showed no evidence of meningitis. Initial antibiotics of vancomycin and Zosyn was changed to continued vancomycin, Fortaz Flagyl and acyclovir to cover for meningitis and encephalitis SUBJ 06/21/16: Patient started developing extremely high temperature with MAXIMUM TEMPERATURE of 108.8. His clinical picture does not fit into NMS or malignant hyperthermia or serotonin syndrome, even though any of the bile remained a possibility. Empirically given Dantrolene 150 mg IV x1. Serotonin syndrome is also a possibility but patient did not present with high fever, neither rigidity. I think most likely patient is having methamphetamine toxicity as exhibited by mydriasis, myoclonus, cardiovascular collapse. Complicated by anoxic brain injury. Patient remains on Levophed 30 mcg/min, Dopamine 18 mcg/kg per min and Vasopressin 0.04 IU/min. Lj-Synephrine had to be added to maintain map. His creatinine has worsened to 6.2 and patient is almost anuric. White count has increased to 17,000, platelet count has dropped from 252 to 96, likely from DICPatient continued to spike fever, increased to up to 108.8. I was unable to rule out either NMS or malignant hyperthermia. Also serotonin syndrome and methamphetamine toxicity were in the differential. Dantrolene sodium 150 mg IV 1 given and neuromuscular paralysis restarted. Also patient was given Versed bolus and continuous infusion. Temperature was unable to be controlled with IV Tylenol and cooling blanket. I placed a right femoral heat exchange catheter for invasive cooling to normal temperature. Patient continued to be oliguric and a vascath was placed at the left subclavian site and CVVH initiated. Patient was also updated multiple times. She changed code status to DNR according to patient's previously stated wishes. Concern remains for severe anoxic injury. Patient became asystolic and at 2254 on 06/21/16 Meghan Ugarte MD Jun 22, 2016 06:53
[2016-06-22 11:20] LABS: CF EBV DNA PCR RESULT Negative (Negative); CF EBV SPEC SOURCE CSF (())
[2016-06-22 12:16] LABS: HSV 1,PCR Negative (Negative)
[2016-06-23 18:06] LABS: CSF CRYPTOCOCCUS AG CONF ND (NOT DETECTD)
[2016-06-23 19:53] LABS: VDRL CSF NON-REACTIVE (())
[2016-06-24 09:52] LABS: VZV PCR RESULT <500 (())
== END 2016-06-21 22:54 | disposition expired | DRG 917 ==
LOC: NEPC 17:43 → NEDA 19:35 → HIMN 22:10
PROVIDERS: ADMIT Emergency Medicine; ATTEND Emergency Medicine
PROC: 5A1945Z Respiratory Ventilation, 24-96 Consecutive Hours (ICD-10-PCS; principal; 2016-06-19)
PROC: 0BH17EZ Insertion of Endotracheal Airway into Trachea, Via Natural or Artificial Opening (ICD-10-PCS; 2016-06-19)
PROC: 05HM33Z Insertion of Infusion Device into Right Internal Jugular Vein, Percutaneous Approach (ICD-10-PCS; 2016-06-19)
PROC: 03HY32Z Insertion of Monitoring Device into Upper Artery, Percutaneous Approach (ICD-10-PCS; 2016-06-20)
PROC: 0B9B8ZX Drainage of Left Lower Lobe Bronchus, Via Natural or Artificial Opening Endoscopic, Diagnostic (ICD-10-PCS; 2016-06-20)
PROC: 0B958ZX Drainage of Right Middle Lobe Bronchus, Via Natural or Artificial Opening Endoscopic, Diagnostic (ICD-10-PCS; 2016-06-20)
PROC: 0B968ZX Drainage of Right Lower Lobe Bronchus, Via Natural or Artificial Opening Endoscopic, Diagnostic (ICD-10-PCS; 2016-06-20)
PROC: 009U3ZX Drainage of Spinal Canal, Percutaneous Approach, Diagnostic (ICD-10-PCS; 2016-06-20)
PROC: 06HM33Z Insertion of Infusion Device into Right Femoral Vein, Percutaneous Approach (ICD-10-PCS; 2016-06-21)
PROC: 05H633Z Insertion of Infusion Device into Left Subclavian Vein, Percutaneous Approach (ICD-10-PCS; 2016-06-21)
PROC: 5A1D00Z (ICD-10-PCS; 2016-06-21)
DX: T43.624A Poisoning by amphetamines, undetermined, initial encounter (principal); J96.01 Acute respiratory failure with hypoxia; N17.0 Acute kidney failure with tubular necrosis; R65.21 Severe sepsis with septic shock; D65 Disseminated intravascular coagulation [defibrination syndrome]; A41.9 Sepsis, unspecified organism; J69.0 Pneumonitis due to inhalation of food and vomit; G93.1 Anoxic brain damage, not elsewhere classified; E72.20 Disorder of urea cycle metabolism, unspecified; E87.2 Acidosis; D68.8 Other specified coagulation defects; M62.82 Rhabdomyolysis; D74.9 Methemoglobinemia, unspecified; N39.0 Urinary tract infection, site not specified; T87.40 Infection of amputation stump, unspecified extremity; Y92.009 Unspecified place in unspecified non-institutional (private) residence as the place of occurrence of the external cause; Y92.9 Unspecified place or not applicable; T50.901A Poisoning by unspecified drugs, medicaments and biological substances, accidental (unintentional), initial encounter; F14.90 Cocaine use, unspecified, uncomplicated; R34 Anuria and oliguria; K90.0 Celiac disease; L13.0 Dermatitis herpetiformis; I44.0 Atrioventricular block, first degree; F43.10 Post-traumatic stress disorder, unspecified; F41.8 Other specified anxiety disorders; Z86.711 Personal history of pulmonary embolism; Z86.718 Personal history of other venous thrombosis and embolism; Z89.511 Acquired absence of right leg below knee; Z98.84 Bariatric surgery status; Z90.49 Acquired absence of other specified parts of digestive tract; F15.10 Other stimulant abuse, uncomplicated; E87.6 Hypokalemia; E83.51 Hypocalcemia; E83.39 Other disorders of phosphorus metabolism; Z72.0 Tobacco use; H57.04 Mydriasis; I73.9 Peripheral vascular disease, unspecified; Y83.5 Amputation of limb(s) as the cause of abnormal reaction of the patient, or of later complication, without mention of misadventure at the time of the procedure; D64.9 Anemia, unspecified; I46.9 Cardiac arrest, cause unspecified; Z66 Do not resuscitate; E83.42 Hypomagnesemia; G25.3 Myoclonus
CPT/HCPCS: 31500; 36430; 36556; 36600; 51702; 62270; 70450; 70551; 71010; 72125; 76937; 80053; 80185; 80202; 80307; 81001; 82140; 82550; 82552; 82805; 82945; 83605; 83690; 83735; 84100; 84157; 84443; 84484; 85007; 85025; 85027; 85384; 85610; 85730; 86403; 86592; 86900; 86901; 87015; 87040; 87070; 87086; 87102; 87116; 87147; 87186; 87205; 87206; 87529; 87641; 87798; 87799; 89051; 93005; 93306; 94002; 94003; 94640; 94664; 95819; 96365; 96368; C9113; J0131; J0133; J0171; J0461; J0696; J0713; J1165; J1265; J1644; J1720; J2248; J2250; J2370; J2543; J3370; J3475; J3480; J7030; J7040; J7050; J7060; J7070; P9035; Q2009